=== PATIENT | male | born 1940 | race African-American/Black ===

== ENCOUNTER 2019-11-07 18:36 | Inpatient (IN) ==
[2019-11-07 22:10] LABS: Hematocrit 18.5 VOL% (42.0-52.0)
[2019-11-07 22:13] LABS: Hemoglobin 6.1 GM/DL (14.0-18.0)
[2019-11-07] MEDS ORDERED: SODIUM CHLORIDE 0.9% 1,000 ML IV PRN (22:21)
[2019-11-07] MEDS ORDERED: ONDANSETRON 4 MG/2 ML VIAL IV PRN (23:02)
[2019-11-07] MEDS ORDERED: ACETAMINOPHEN 325 MG TABLET PO PRN (23:02)
[2019-11-07] MEDS ORDERED: DOCUSATE SODIUM 100 MG CAPSULE PO PRN (23:02)
[2019-11-08] MEDS: carvediloL 3.125 MG TABLET PO SCH ×2 (09:55→17:52)
[2019-11-08 09:56] LABS: Basophils % 0.2 % (0.0-0.8); Eosinophils % 0.2 % (0.00-10.9); Hematocrit 21.4 VOL% (42.0-52.0); Hemoglobin 7.3 GM/DL (14.0-18.0); Immature Granulocytes % 0.5 %; Immature Granulocytes Absolute 0.03 #; Lymphocytes # 0.9 10*3/uL (1.4-4.0); Lymphocytes % 15.3 % (21.2-54.2); Mean Corpuscular HGB Conc 34.1 GM/DL (32-36); Mean Platelet Volume 10.5 FL (9.6-12.0); Monocytes % 4.5 % (1.7-12.7); Neutrophils % 79.3 % (38.7-73.9); Platelet Count 158 T/CUMM (130-400); Red Blood Count 2.14 MC/CUMM (3.8-5.5); Red Cell Distribution Width 18.4 % (9.3-17.3); White Blood Count 5.6 T/CUMM (4-12)
[2019-11-08 10:04] LABS: INR 1.3; PT Patient Result 13.5 SECS (9.8-11.9); Partial Thromboplastin Time 27.6 SECS (23.9-33.8)
[2019-11-08 10:20] LABS: Albumin 2.1 G/DL (3.4-5.0); Bilirubin,Total 0.9 MG/DL (0.2-1.0); Calcium 7.7 MG/DL (8.5-10.1); Osmolality,Calculated 289.1 MOS/KG (273-304); Total Protein 4.2 G/DL (6.4-8.3)
[2019-11-08] MEDS: TAMSULOSIN 0.4 MG CAPSULE PO SCH (14:37)
[2019-11-08] MEDS: ATORVASTATIN 10 MG TABLET PO SCH (20:11)
[2019-11-08] MEDS: DUTASTERIDE 0.5 MG CAPSULE PO SCH (20:11)
[2019-11-08 20:24] LABS: Hematocrit 22.6 VOL% (42.0-52.0); Hemoglobin 7.4 GM/DL (14.0-18.0)
[2019-11-08 22:48] LABS: Hematocrit 22.6 VOL% (42.0-52.0); Hemoglobin 7.7 GM/DL (14.0-18.0)
[2019-11-09 05:47] LABS: Basophils % 0.4 % (0.0-0.8); Eosinophils # 0.1 10*3/uL (0.0-0.87); Eosinophils % 1.1 % (0.00-10.9); Immature Granulocytes % 0.5 %; Immature Granulocytes Absolute 0.03 #; Lymphocytes # 1.2 10*3/uL (1.4-4.0); Lymphocytes % 22.1 % (21.2-54.2); Mean Corpuscular HGB Conc 33.5 GM/DL (32-36); Mean Corpuscular Volume 95.7 FL (87-102); Mean Platelet Volume 10.5 FL (9.6-12.0); Monocytes % 6.8 % (1.7-12.7); Neutrophils % 69.1 % (38.7-73.9); Platelet Count 131 T/CUMM (130-400); Red Blood Count 1.87 MC/CUMM (3.8-5.5); Red Cell Distribution Width 20.5 % (9.3-17.3); White Blood Count 5.6 T/CUMM (4-12)
[2019-11-09 05:48] LABS: Hematocrit 17.9 VOL% (42.0-52.0)
[2019-11-09] MEDS ORDERED: SODIUM CHLORIDE 0.9% 1,000 ML IV PRN (05:53)
[2019-11-09 06:07] LABS: Calcium 7.6 MG/DL (8.5-10.1)
[2019-11-09 06:51] LABS: Platelet Estimate Adequate
[2019-11-09 06:52] LABS: Anisocytosis 2+; Giant Platelets Few; Poikilocytosis Slight
[2019-11-09 06:53] LABS: Macrocytosis Slight
[2019-11-09] MEDS ORDERED: MAGNESIUM SULF RIDER 2 GM in PREMIX 1 EACH IV ONE (08:44)
[2019-11-09] MEDS: TAMSULOSIN 0.4 MG CAPSULE PO SCH (09:53)
[2019-11-09] MEDS: carvediloL 3.125 MG TABLET PO SCH ×2 (09:54→17:18)
[2019-11-09] MEDS: lisinopriL 2.5 MG TABLET PO SCH (09:54)
[2019-11-09 16:07] LABS: Hematocrit 24.3 VOL% (42.0-52.0); Hemoglobin 8.2 GM/DL (14.0-18.0)
[2019-11-09] MEDS: DUTASTERIDE 0.5 MG CAPSULE PO SCH (21:25)
[2019-11-09] MEDS: ATORVASTATIN 10 MG TABLET PO SCH (21:25)
[2019-11-09 22:10] LABS: Hematocrit 25.5 VOL% (42.0-52.0); Hemoglobin 8.9 GM/DL (14.0-18.0)
[2019-11-10 06:13] LABS: Basophils % 0.4 % (0.0-0.8); Eosinophils # 0.1 10*3/uL (0.0-0.87); Eosinophils % 1.3 % (0.00-10.9); Hemoglobin 7.9 GM/DL (14.0-18.0); Immature Granulocytes % 0.4 %; Immature Granulocytes Absolute 0.03 #; Lymphocytes # 1.3 10*3/uL (1.4-4.0); Lymphocytes % 18.4 % (21.2-54.2); Mean Corpuscular HGB Conc 34.3 GM/DL (32-36); Mean Platelet Volume 10.8 FL (9.6-12.0); Monocytes % 6.3 % (1.7-12.7); Neutrophils % 73.2 % (38.7-73.9); Platelet Count 138 T/CUMM (130-400); Red Cell Distribution Width 18.6 % (9.3-17.3); White Blood Count 6.8 T/CUMM (4-12)
[2019-11-10 06:47] LABS: Calcium 7.9 MG/DL (8.5-10.1); Osmolality,Calculated 285.1 MOS/KG (273-304)
[2019-11-10] MEDS: lisinopriL 2.5 MG TABLET PO SCH (08:11)
[2019-11-10] MEDS: carvediloL 3.125 MG TABLET PO SCH ×2 (08:11→16:48)
[2019-11-10] MEDS: TAMSULOSIN 0.4 MG CAPSULE PO SCH (08:11)
[2019-11-10] MEDS: POLYETHYLENE GLYCOL POWDER 17 GM PACK PO SCH (08:31)
[2019-11-10] MEDS: DOCUSATE SODIUM 100 MG CAPSULE PO SCH ×2 (08:31→21:37)
[2019-11-10] MEDS: DUTASTERIDE 0.5 MG CAPSULE PO SCH (21:37)
[2019-11-10] MEDS: ATORVASTATIN 10 MG TABLET PO SCH (21:37)
[2019-11-11 06:37] LABS: Basophils % 0.3 % (0.0-0.8); Eosinophils # 0.1 10*3/uL (0.0-0.87); Eosinophils % 1.3 % (0.00-10.9); Hematocrit 21.9 VOL% (42.0-52.0); Hemoglobin 7.2 GM/DL (14.0-18.0); Immature Granulocytes % 0.5 %; Immature Granulocytes Absolute 0.03 #; Lymphocytes # 0.9 10*3/uL (1.4-4.0); Lymphocytes % 15.5 % (21.2-54.2); Mean Corpuscular HGB Conc 32.9 GM/DL (32-36); Mean Corpuscular Volume 96.5 FL (87-102); Mean Platelet Volume 10.6 FL (9.6-12.0); Monocytes % 6.2 % (1.7-12.7); Neutrophils % 76.2 % (38.7-73.9); Platelet Count 168 T/CUMM (130-400); Red Blood Count 2.27 MC/CUMM (3.8-5.5); Red Cell Distribution Width 18.6 % (9.3-17.3)
[2019-11-11] MEDS ORDERED: SODIUM CHLORIDE 0.9% 1,000 ML IV PRN (07:27)
[2019-11-11] MEDS: POLYETHYLENE GLYCOL POWDER 17 GM PACK PO SCH (08:34)
[2019-11-11] MEDS: DOCUSATE SODIUM 100 MG CAPSULE PO SCH ×2 (08:34→20:59)
[2019-11-11] MEDS: TAMSULOSIN 0.4 MG CAPSULE PO SCH (08:34)
[2019-11-11] MEDS: lisinopriL 2.5 MG TABLET PO SCH (08:34)
[2019-11-11] MEDS: carvediloL 3.125 MG TABLET PO SCH ×2 (08:34→16:47)
[2019-11-11] MEDS ORDERED: BISACODYL 10 MG SUPP RECTAL ONE (12:53)
[2019-11-11] MEDS: DUTASTERIDE 0.5 MG CAPSULE PO SCH (20:59)
[2019-11-11] MEDS: ATORVASTATIN 10 MG TABLET PO SCH (20:59)
[2019-11-12 05:56] LABS: Basophils % 0.3 % (0.0-0.8); Eosinophils # 0.2 10*3/uL (0.0-0.87); Eosinophils % 2.1 % (0.00-10.9); Hemoglobin 9.3 GM/DL (14.0-18.0); Immature Granulocytes % 0.4 %; Immature Granulocytes Absolute 0.03 #; Lymphocytes # 1.1 10*3/uL (1.4-4.0); Lymphocytes % 14.2 % (21.2-54.2); Mean Corpuscular HGB Conc 33.2 GM/DL (32-36); Mean Platelet Volume 10.3 FL (9.6-12.0); Monocytes % 5.4 % (1.7-12.7); Neutrophils % 77.6 % (38.7-73.9); Platelet Count 181 T/CUMM (130-400); Red Blood Count 2.98 MC/CUMM (3.8-5.5); Red Cell Distribution Width 18.8 % (9.3-17.3); White Blood Count 7.8 T/CUMM (4-12)
[2019-11-12 07:09] LABS: Calcium 7.8 MG/DL (8.5-10.1)
[2019-11-12] MEDS: carvediloL 3.125 MG TABLET PO SCH ×2 (08:24→17:04)
[2019-11-12] MEDS: lisinopriL 2.5 MG TABLET PO SCH (08:24)
[2019-11-12] MEDS: POLYETHYLENE GLYCOL POWDER 17 GM PACK PO SCH (08:25)
[2019-11-12] MEDS: TAMSULOSIN 0.4 MG CAPSULE PO SCH (08:25)
[2019-11-12] MEDS: DOCUSATE SODIUM 100 MG CAPSULE PO SCH ×2 (08:25→20:23)
[2019-11-12] MEDS: ATORVASTATIN 10 MG TABLET PO SCH (20:23)
[2019-11-12] MEDS: DUTASTERIDE 0.5 MG CAPSULE PO SCH (20:23)
[2019-11-13 04:53] LABS: Basophils % 0.4 % (0.0-0.8); Eosinophils # 0.2 10*3/uL (0.0-0.87); Eosinophils % 4.2 % (0.00-10.9); Hematocrit 29.2 VOL% (42.0-52.0); Hemoglobin 9.8 GM/DL (14.0-18.0); Immature Granulocytes % 0.4 %; Immature Granulocytes Absolute 0.02 #; Lymphocytes # 0.9 10*3/uL (1.4-4.0); Lymphocytes % 17.1 % (21.2-54.2); Mean Corpuscular HGB Conc 33.6 GM/DL (32-36); Mean Corpuscular Volume 93.9 FL (87-102); Mean Platelet Volume 10.2 FL (9.6-12.0); Monocytes % 7.3 % (1.7-12.7); Neutrophils % 70.6 % (38.7-73.9); Platelet Count 204 T/CUMM (130-400); Red Blood Count 3.11 MC/CUMM (3.8-5.5); Red Cell Distribution Width 18.5 % (9.3-17.3); White Blood Count 5.5 T/CUMM (4-12)
[2019-11-13] MEDS: carvediloL 3.125 MG TABLET PO SCH ×2 (08:57→16:01)
[2019-11-13] MEDS: DOCUSATE SODIUM 100 MG CAPSULE PO SCH ×2 (08:57→22:04)
[2019-11-13] MEDS: POLYETHYLENE GLYCOL POWDER 17 GM PACK PO SCH (08:57)
[2019-11-13] MEDS: TAMSULOSIN 0.4 MG CAPSULE PO SCH (08:57)
[2019-11-13] MEDS: lisinopriL 2.5 MG TABLET PO SCH ×2 (08:57→22:04)
[2019-11-13] MEDS: DUTASTERIDE 0.5 MG CAPSULE PO SCH (22:04)
[2019-11-13] MEDS: ATORVASTATIN 10 MG TABLET PO SCH (22:04)
[2019-11-14 06:31] LABS: Basophils % 0.4 % (0.0-0.8); Eosinophils # 0.2 10*3/uL (0.0-0.87); Eosinophils % 3.4 % (0.00-10.9); Hematocrit 29.3 VOL% (42.0-52.0); Hemoglobin 9.6 GM/DL (14.0-18.0); Immature Granulocytes % 0.2 %; Immature Granulocytes Absolute 0.01 #; Lymphocytes % 18.8 % (21.2-54.2); Mean Corpuscular HGB Conc 32.8 GM/DL (32-36); Mean Corpuscular Volume 95.8 FL (87-102); Monocytes % 7.6 % (1.7-12.7); Neutrophils % 69.6 % (38.7-73.9); Platelet Count 215 T/CUMM (130-400); Red Blood Count 3.06 MC/CUMM (3.8-5.5); White Blood Count 5.3 T/CUMM (4-12)
[2019-11-14 06:53] LABS: Calcium 7.8 MG/DL (8.5-10.1); Osmolality,Calculated 287.8 MOS/KG (273-304)
[2019-11-14] MEDS ORDERED: LIDOCAINE 2% TOP JELLY 20 ML VIAL INTRAURETH ONE (09:07)
[2019-11-14] MEDS: lisinopriL 2.5 MG TABLET PO SCH ×2 (10:18→21:33)
[2019-11-14] MEDS: DOCUSATE SODIUM 100 MG CAPSULE PO SCH ×2 (10:18→21:33)
[2019-11-14] MEDS: TAMSULOSIN 0.4 MG CAPSULE PO SCH (10:18)
[2019-11-14] MEDS: carvediloL 3.125 MG TABLET PO SCH ×2 (10:18→16:06)
[2019-11-14] MEDS: POLYETHYLENE GLYCOL POWDER 17 GM PACK PO SCH (10:19)
[2019-11-14] MEDS: ATORVASTATIN 10 MG TABLET PO SCH (21:32)
[2019-11-14] MEDS: DUTASTERIDE 0.5 MG CAPSULE PO SCH (21:33)
[2019-11-15 06:59] LABS: Basophils % 0.7 % (0.0-0.8); Eosinophils # 0.1 10*3/uL (0.0-0.87); Eosinophils % 2.5 % (0.00-10.9); Hematocrit 29.4 VOL% (42.0-52.0); Hemoglobin 9.6 GM/DL (14.0-18.0); Immature Granulocytes % 0.2 %; Immature Granulocytes Absolute 0.01 #; Lymphocytes # 0.8 10*3/uL (1.4-4.0); Lymphocytes % 17.2 % (21.2-54.2); Mean Corpuscular HGB Conc 32.7 GM/DL (32-36); Mean Corpuscular Volume 96.4 FL (87-102); Mean Platelet Volume 10.2 FL (9.6-12.0); Monocytes % 7.1 % (1.7-12.7); Neutrophils % 72.3 % (38.7-73.9); Platelet Count 240 T/CUMM (130-400); Red Blood Count 3.05 MC/CUMM (3.8-5.5); Red Cell Distribution Width 17.7 % (9.3-17.3); White Blood Count 4.5 T/CUMM (4-12)
[2019-11-15] MEDS: carvediloL 3.125 MG TABLET PO SCH ×2 (10:30→16:25)
[2019-11-15] MEDS: TAMSULOSIN 0.4 MG CAPSULE PO SCH (10:30)
[2019-11-15] MEDS: POLYETHYLENE GLYCOL POWDER 17 GM PACK PO SCH (10:30)
[2019-11-15] MEDS: lisinopriL 2.5 MG TABLET PO SCH (10:30)
[2019-11-15] MEDS: DOCUSATE SODIUM 100 MG CAPSULE PO SCH (10:30)
[2019-11-15 12:16] VITALS: BP 136/60
== END 2019-11-15 16:43 | disposition home health service (06) | DRG 813 ==
LOC: N.3E 20:51 → SUATTDRO 20:51
PROVIDERS: ADMIT Internal Medicine; ATTEND Internal Medicine

== ENCOUNTER 2020-06-03 11:44 | Inpatient (IN) ==
[2020-06-03] MEDS ORDERED: ONDANSETRON 4 MG/2 ML VIAL IV PRN (13:44)
[2020-06-03] MEDS ORDERED: ACETAMINOPHEN 325 MG TABLET PO PRN (13:44)
[2020-06-03 14:21] LABS: Basophils % 0.8 % (0.0-0.8); Eosinophils # 0.1 10*3/uL (0.0-0.87); Eosinophils % 2.1 % (0.00-10.9); Hematocrit 23.9 VOL% (42.0-52.0); Immature Granulocytes % 0.3 %; Immature Granulocytes Absolute 0.01 #; Lymphocytes # 1.2 10*3/uL (1.4-4.0); Mean Corpuscular HGB Conc 29.3 GM/DL (32-36); Mean Corpuscular Volume 97.6 FL (87-102); Mean Platelet Volume 11.5 FL (9.6-12.0); Neutrophils % 56.8 % (38.7-73.9); Platelet Count 186 T/CUMM (130-400); Red Blood Count 2.45 MC/CUMM (3.8-5.5); Red Cell Distribution Width 16.1 % (9.3-17.3); White Blood Count 3.9 T/CUMM (4-12)
[2020-06-03] MEDS ORDERED: SODIUM CHLORIDE 0.9% 1,000 ML IV PRN (14:21)
[2020-06-03] MEDS: carvediloL 3.125 MG TABLET PO SCH (16:44)
[2020-06-03] MEDS ORDERED: FUROSEMIDE 20 MG/2 ML VIAL IV ONE ×2 (17:22→20:00)
[2020-06-03] MEDS: lisinopriL 2.5 MG TABLET PO SCH (20:37)
[2020-06-03] MEDS: ATORVASTATIN 10 MG TABLET PO SCH (20:37)
[2020-06-03] MEDS: levETIRAcetam 500 MG TABLET PO SCH (20:37)
[2020-06-03] MEDS ORDERED: DOCUSATE SODIUM 100 MG CAPSULE PO SCH (21:00)
[2020-06-04 05:45] LABS: Basophils % 0.6 % (0.0-0.8); Eosinophils # 0.1 10*3/uL (0.0-0.87); Eosinophils % 1.6 % (0.00-10.9); Hematocrit 28.5 VOL% (42.0-52.0); Hemoglobin 8.7 GM/DL (14.0-18.0); Immature Granulocytes % 0.2 %; Immature Granulocytes Absolute 0.01 #; Mean Corpuscular HGB Conc 30.5 GM/DL (32-36); Mean Corpuscular Volume 95.6 FL (87-102); Mean Platelet Volume 11.7 FL (9.6-12.0); Neutrophils % 70.6 % (38.7-73.9); Platelet Count 163 T/CUMM (130-400); Red Blood Count 2.98 MC/CUMM (3.8-5.5); Red Cell Distribution Width 15.8 % (9.3-17.3); White Blood Count 4.9 T/CUMM (4-12)
[2020-06-04 06:14] LABS: Bilirubin,Total 0.8 MG/DL (0.2-1.0); Calcium 8.4 MG/DL (8.5-10.1); Osmolality,Calculated 282.4 MOS/KG (273-304); Potassium 4.2 MMOL/L (3.5-5.1); Total Protein 6.2 G/DL (6.4-8.3)
[2020-06-04] MEDS: DUTASTERIDE 0.5 MG CAPSULE PO SCH (09:14)
[2020-06-04] MEDS: PANTOPRAZOLE 40 MG TABLET PO SCH (09:14)
[2020-06-04] MEDS: levETIRAcetam 500 MG TABLET PO SCH ×2 (09:15→20:51)
[2020-06-04] MEDS: carvediloL 3.125 MG TABLET PO SCH ×2 (09:15→16:22)
[2020-06-04] MEDS: lisinopriL 2.5 MG TABLET PO SCH ×2 (09:15→20:51)
[2020-06-04] MEDS: TAMSULOSIN 0.4 MG CAPSULE PO SCH (09:15)
[2020-06-04] MEDS: DOCUSATE SODIUM 100 MG CAPSULE PO SCH (09:15)
[2020-06-04] MEDS: ATORVASTATIN 10 MG TABLET PO SCH (20:51)
[2020-06-05] MEDS: carvediloL 3.125 MG TABLET PO SCH ×2 (08:46→17:09)
[2020-06-05] MEDS: TAMSULOSIN 0.4 MG CAPSULE PO SCH (08:46)
[2020-06-05] MEDS: lisinopriL 2.5 MG TABLET PO SCH ×2 (08:46→21:42)
[2020-06-05] MEDS: PANTOPRAZOLE 40 MG TABLET PO SCH (08:46)
[2020-06-05] MEDS: DUTASTERIDE 0.5 MG CAPSULE PO SCH (08:46)
[2020-06-05] MEDS: DOCUSATE SODIUM 100 MG CAPSULE PO SCH (08:46)
[2020-06-05] MEDS: levETIRAcetam 500 MG TABLET PO SCH ×2 (08:46→21:42)
[2020-06-05] MEDS: ATORVASTATIN 10 MG TABLET PO SCH (21:42)
[2020-06-06 06:40] LABS: Basophils % 0.3 % (0.0-0.8); Eosinophils # 0.1 10*3/uL (0.0-0.87); Eosinophils % 1.9 % (0.00-10.9); Hemoglobin 8.8 GM/DL (14.0-18.0); Immature Granulocytes % 0.3 %; Immature Granulocytes Absolute 0.01 #; Lymphocytes % 26.6 % (21.2-54.2); Mean Corpuscular HGB Conc 31.4 GM/DL (32-36); Mean Platelet Volume 12.2 FL (9.6-12.0); Monocytes % 7.7 % (1.7-12.7); Neutrophils % 63.2 % (38.7-73.9); Platelet Count 163 T/CUMM (130-400); Red Blood Count 2.98 MC/CUMM (3.8-5.5); Red Cell Distribution Width 15.8 % (9.3-17.3); White Blood Count 3.7 T/CUMM (4-12)
[2020-06-06 06:54] LABS: Calcium 8.1 MG/DL (8.5-10.1); Osmolality,Calculated 289.7 MOS/KG (273-304); Potassium 4.1 MMOL/L (3.5-5.1)
[2020-06-06 06:55] LABS: Calcium 8.2 MG/DL (8.5-10.1); Osmolality,Calculated 289.7 MOS/KG (273-304); Potassium 4.1 MMOL/L (3.5-5.1)
[2020-06-06] MEDS: lisinopriL 2.5 MG TABLET PO SCH ×2 (08:33→20:52)
[2020-06-06] MEDS: DUTASTERIDE 0.5 MG CAPSULE PO SCH (08:33)
[2020-06-06] MEDS: DOCUSATE SODIUM 100 MG CAPSULE PO SCH (08:33)
[2020-06-06] MEDS: levETIRAcetam 500 MG TABLET PO SCH ×2 (08:33→20:52)
[2020-06-06] MEDS: TAMSULOSIN 0.4 MG CAPSULE PO SCH (08:33)
[2020-06-06] MEDS: PANTOPRAZOLE 40 MG TABLET PO SCH (08:33)
[2020-06-06] MEDS: carvediloL 3.125 MG TABLET PO SCH ×2 (08:33→17:21)
[2020-06-06] MEDS: ATORVASTATIN 10 MG TABLET PO SCH (20:52)
[2020-06-07 05:29] LABS: Basophils % 0.5 % (0.0-0.8); Eosinophils # 0.1 10*3/uL (0.0-0.87); Eosinophils % 2.6 % (0.00-10.9); Hematocrit 28.7 VOL% (42.0-52.0); Hemoglobin 8.9 GM/DL (14.0-18.0); Immature Granulocytes % 0.2 %; Immature Granulocytes Absolute 0.01 #; Lymphocytes % 24.4 % (21.2-54.2); Mean Corpuscular Volume 94.4 FL (87-102); Mean Platelet Volume 11.1 FL (9.6-12.0); Monocytes % 7.5 % (1.7-12.7); Neutrophils % 64.8 % (38.7-73.9); Platelet Count 161 T/CUMM (130-400); Red Blood Count 3.04 MC/CUMM (3.8-5.5); Red Cell Distribution Width 15.9 % (9.3-17.3); White Blood Count 4.3 T/CUMM (4-12)
[2020-06-07 05:43] LABS: INR 1.2; PT Patient Result 12.7 SECS (9.8-11.9)
[2020-06-07 06:10] LABS: Calcium 8.3 MG/DL (8.5-10.1); Osmolality,Calculated 289.7 MOS/KG (273-304); Potassium 4.1 MMOL/L (3.5-5.1)
[2020-06-07] MEDS: lisinopriL 2.5 MG TABLET PO SCH (11:08)
[2020-06-07] MEDS: TAMSULOSIN 0.4 MG CAPSULE PO SCH (11:09)
[2020-06-07] MEDS: DUTASTERIDE 0.5 MG CAPSULE PO SCH (11:09)
[2020-06-07] MEDS: levETIRAcetam 500 MG TABLET PO SCH (11:09)
[2020-06-07] MEDS: PANTOPRAZOLE 40 MG TABLET PO SCH (11:09)
[2020-06-07] MEDS: DOCUSATE SODIUM 100 MG CAPSULE PO SCH (11:09)
[2020-06-07] MEDS: carvediloL 3.125 MG TABLET PO SCH (11:09)
[2020-06-07 12:38] VITALS: BP 163/64
== END 2020-06-07 14:20 | disposition home health service (06) | DRG 694 ==
LOC: N.TELEN
PROVIDERS: ADMIT Family Medicine; ATTEND Family Medicine

== ENCOUNTER 2020-08-20 21:25 | Observation (INO) ==
[2020-08-20] MEDS ORDERED: LORazepam 2 MG/1 ML VIAL IV STA (21:56)
[2020-08-20 22:05] LABS: Basophils # 0.1 10*3/uL (0.0-0.2); Basophils % 0.7 % (0.0-0.8); Eosinophils # 0.2 10*3/uL (0.0-0.87); Eosinophils % 2.3 % (0.00-10.9); Hematocrit 34.5 VOL% (42.0-52.0); Hemoglobin 11.1 GM/DL (14.0-18.0); Immature Granulocytes % 0.1 %; Immature Granulocytes Absolute 0.01 #; Lymphocytes # 1.2 10*3/uL (1.4-4.0); Lymphocytes % 16.3 % (21.2-54.2); Mean Corpuscular HGB Conc 32.2 GM/DL (32-36); Mean Corpuscular Volume 98.6 FL (87-102); Mean Platelet Volume 11.5 FL (9.6-12.0); Monocytes % 4.9 % (1.7-12.7); Neutrophils % 75.7 % (38.7-73.9); Platelet Count 216 T/CUMM (130-400); Red Cell Distribution Width 20.1 % (9.3-17.3); White Blood Count 7.4 T/CUMM (4-12)
[2020-08-20 22:24] LABS: Albumin 3.3 G/DL (3.4-5.0); Bilirubin,Total 0.8 MG/DL (0.2-1.0); Calcium 9.1 MG/DL (8.5-10.1); Osmolality,Calculated 290.8 MOS/KG (273-304); Potassium 4.3 MMOL/L (3.5-5.1); Total Protein 7.1 G/DL (6.4-8.2)
[2020-08-20] MEDS ORDERED: FUROSEMIDE 40 MG/4 ML VIAL IV STA (22:37)
[2020-08-20] MEDS ORDERED: ONDANSETRON 4 MG/2 ML VIAL IV PRN (23:42)
[2020-08-21 06:03] LABS: Basophils % 0.4 % (0.0-0.8); Eosinophils % 0.2 % (0.00-10.9); Hematocrit 34.9 VOL% (42.0-52.0); Hemoglobin 11.4 GM/DL (14.0-18.0); Immature Granulocytes % 0.4 %; Immature Granulocytes Absolute 0.02 #; Lymphocytes # 0.9 10*3/uL (1.4-4.0); Lymphocytes % 15.4 % (21.2-54.2); Mean Corpuscular HGB Conc 32.7 GM/DL (32-36); Mean Corpuscular Volume 98.9 FL (87-102); Mean Platelet Volume 11.8 FL (9.6-12.0); Monocytes % 8.9 % (1.7-12.7); Neutrophils % 74.7 % (38.7-73.9); Platelet Count 202 T/CUMM (130-400); Red Blood Count 3.53 MC/CUMM (3.8-5.5); Red Cell Distribution Width 19.9 % (9.3-17.3); White Blood Count 5.5 T/CUMM (4-12)
[2020-08-21 06:26] LABS: Albumin 3.1 G/DL (3.4-5.0); Bilirubin,Total 0.8 MG/DL (0.2-1.0); Calcium 8.8 MG/DL (8.5-10.1); Potassium 3.7 MMOL/L (3.5-5.1); Total Protein 6.7 G/DL (6.4-8.2)
[2020-08-21] MEDS: PANTOPRAZOLE 40 MG VIAL IV SCH (08:18)
[2020-08-21] MEDS: ENOXAPARIN 100 MG/ML SYRINGE SUBCUT SCH ×2 (08:19→20:20)
[2020-08-21] MEDS ORDERED: MAGNESIUM HYDROXIDE SUSP 30 ML UDCUP PO ONE (11:15)
[2020-08-21 11:54] LABS: Troponin I 0.102 NG/ML (0.00-0.045)
[2020-08-21] MEDS ORDERED: LORazepam 2 MG/1 ML VIAL IV PRN (13:05)
[2020-08-21] MEDS ORDERED: LORazepam 2 MG/1 ML VIAL ONE (13:07)
[2020-08-21 14:59] LABS: Troponin I 0.158 NG/ML (0.00-0.045)
[2020-08-21] MEDS: FUROSEMIDE 40 MG/4 ML VIAL IV SCH (15:45)
[2020-08-21 18:11] LABS: Troponin I 0.142 NG/ML (0.00-0.045)
[2020-08-21] MEDS: HALOPERIDOL 5 MG/ML AMP IM PRN (20:17)
[2020-08-21] MEDS: carvediloL 3.125 MG TABLET PO SCH (20:19)
[2020-08-21] MEDS: ATORVASTATIN 10 MG TABLET PO SCH (20:19)
[2020-08-21] MEDS: lisinopriL 2.5 MG TABLET PO SCH (23:46)
[2020-08-22] MEDS: HALOPERIDOL 5 MG/ML AMP IM PRN (02:55)
[2020-08-22 05:55] LABS: Basophils % 0.5 % (0.0-0.8); Eosinophils # 0.1 10*3/uL (0.0-0.87); Eosinophils % 1.1 % (0.00-10.9); Hematocrit 39.2 VOL% (42.0-52.0); Hemoglobin 12.3 GM/DL (14.0-18.0); Immature Granulocytes % 0.5 %; Immature Granulocytes Absolute 0.03 #; Lymphocytes # 1.2 10*3/uL (1.4-4.0); Lymphocytes % 19.1 % (21.2-54.2); Mean Corpuscular HGB Conc 31.4 GM/DL (32-36); Mean Corpuscular Volume 101.6 FL (87-102); Neutrophils % 70.8 % (38.7-73.9); Platelet Count 229 T/CUMM (130-400); Red Blood Count 3.86 MC/CUMM (3.8-5.5); Red Cell Distribution Width 19.9 % (9.3-17.3); White Blood Count 6.2 T/CUMM (4-12)
[2020-08-22 06:05] LABS: Calcium 9.3 MG/DL (8.5-10.1); Potassium 3.7 MMOL/L (3.5-5.1)
[2020-08-22] MEDS: ENOXAPARIN 100 MG/ML SYRINGE SUBCUT SCH ×2 (09:34→20:49)
[2020-08-22] MEDS: DUTASTERIDE 0.5 MG CAPSULE PO SCH (09:34)
[2020-08-22] MEDS: TAMSULOSIN 0.4 MG CAPSULE PO SCH (09:34)
[2020-08-22] MEDS: carvediloL 3.125 MG TABLET PO SCH ×2 (09:34→20:49)
[2020-08-22] MEDS: ASPIRIN EC 81 MG TABLET PO SCH (09:34)
[2020-08-22] MEDS: PANTOPRAZOLE 40 MG VIAL IV SCH (09:35)
[2020-08-22] MEDS: FUROSEMIDE 40 MG/4 ML VIAL IV SCH ×2 (09:35→16:36)
[2020-08-22] MEDS: lisinopriL 2.5 MG TABLET PO SCH ×2 (09:36→20:49)
[2020-08-22 11:58] LABS: Bilirubin,Urine Negative (Negative); Blood, Urine Large mg/dL (Negative); Glucose,Urine (UA) Negative (Negative); Ketones,Urine Negative (Negative); Mucus,Urine Occasional /LPF (Occasional); Nitrite,Urine Negative (Negative); Protein,Urine 30 MG/DL; RBC,Urine 143 /HPF (0-4); Squamous Epithelial Cell,Urine Occasional /HPF (0-10); Urine Appearance CLOUDY (Clear); Urine Color Yellow (Yellow); Urine Specific Gravity 1.008 (1.001-1.035); Urine Urobilinogen < 2.0 EU/DL (0.2-1.0); WBC,Urine 284 /HPF (0-6)
[2020-08-22] MEDS: ATORVASTATIN 10 MG TABLET PO SCH (20:44)
[2020-08-23] MEDS: HALOPERIDOL 5 MG/ML AMP IM PRN (01:28)
[2020-08-23 06:14] LABS: Basophils % 0.4 % (0.0-0.8); Eosinophils # 0.1 10*3/uL (0.0-0.87); Eosinophils % 1.4 % (0.00-10.9); Hematocrit 34.6 VOL% (42.0-52.0); Hemoglobin 11.4 GM/DL (14.0-18.0); Immature Granulocytes % 0.2 %; Immature Granulocytes Absolute 0.01 #; Mean Corpuscular HGB Conc 32.9 GM/DL (32-36); Mean Corpuscular Volume 96.4 FL (87-102); Mean Platelet Volume 10.6 FL (9.6-12.0); Monocytes % 9.5 % (1.7-12.7); Neutrophils % 68.5 % (38.7-73.9); Platelet Count 200 T/CUMM (130-400); Red Blood Count 3.59 MC/CUMM (3.8-5.5); Red Cell Distribution Width 19.9 % (9.3-17.3); White Blood Count 4.9 T/CUMM (4-12)
[2020-08-23 06:30] LABS: Calcium 9.1 MG/DL (8.5-10.1); Potassium 3.1 MMOL/L (3.5-5.1)
[2020-08-23] MEDS ORDERED: POTASSIUM CHLORIDE 20 MEQ TABLET PO ONE (08:08)
[2020-08-23] MEDS ORDERED: AMIODARONE 200 MG TABLET PO SCH (09:00)
[2020-08-23] MEDS ORDERED: FUROSEMIDE 40 MG TABLET PO SCH (09:00)
[2020-08-23] MEDS: FUROSEMIDE 40 MG/4 ML VIAL IV SCH (09:29)
[2020-08-23] MEDS: TAMSULOSIN 0.4 MG CAPSULE PO SCH (09:45)
[2020-08-23] MEDS: lisinopriL 2.5 MG TABLET PO SCH (09:45)
[2020-08-23] MEDS: DUTASTERIDE 0.5 MG CAPSULE PO SCH (09:45)
[2020-08-23] MEDS: ASPIRIN EC 81 MG TABLET PO SCH (09:45)
[2020-08-23] MEDS: PANTOPRAZOLE 40 MG VIAL IV SCH (09:45)
[2020-08-23] MEDS: carvediloL 3.125 MG TABLET PO SCH (09:45)
[2020-08-23] MEDS ORDERED: cefTRIAXone 1,000 MG VIAL IM ONE (15:08)
[2020-08-23 15:22] VITALS: BP 95/51
== END 2020-08-23 17:55 | disposition home or self-care (01) ==
LOC: EDBD → EDUNIT# → N.ED 21:25 → N.EDINP 21:25 → N.TELEN 08-21 00:27
PROVIDERS: ADMIT Family Medicine; ATTEND Family Medicine

== ENCOUNTER 2021-01-20 11:16 | Inpatient (IN) ==
[2021-01-20 12:09] LABS: Basophils % 0.1 % (0.0-0.8); Eosinophils % 0.1 % (0.00-10.9); Hemoglobin 11.4 GM/DL (14.0-18.0); Immature Granulocytes % 0.4 %; Immature Granulocytes Absolute 0.03 #; Lymphocytes # 0.6 10*3/uL (1.4-4.0); Lymphocytes % 8.1 % (21.2-54.2); Mean Corpuscular HGB Conc 33.5 GM/DL (32-36); Mean Corpuscular Volume 109.3 FL (87-102); Mean Platelet Volume 11.2 FL (9.6-12.0); Monocytes % 6.6 % (1.7-12.7); Neutrophils % 84.7 % (38.7-73.9); Platelet Count 158 T/CUMM (130-400); Red Blood Count 3.11 MC/CUMM (3.8-5.5); Red Cell Distribution Width 15.2 % (9.3-17.3)
[2021-01-20 12:20] LABS: Bacteria,Urine Occasional /HPF (Few); Bilirubin,Urine Negative (Negative); Blood, Urine Large mg/dL (Negative); Glucose,Urine (UA) Negative (Negative); Hyaline Casts,Urine 14 /LPF (0-3); Ketones,Urine Negative (Negative); Mucus,Urine Occasional /LPF (Occasional); Nitrite,Urine Negative (Negative); Protein,Urine 100 MG/DL; RBC,Urine 538 /HPF (0-4); Squamous Epithelial Cell,Urine Occasional /HPF (0-10); Urine Appearance CLOUDY (Clear); Urine Color Red (Yellow); Urine Specific Gravity 1.014 (1.001-1.035); Urine Urobilinogen < 2.0 EU/DL (0.2-1.0)
[2021-01-20] MEDS ORDERED: cefTRIAXone 1,000 MG in SODIUM CHLORIDE 0.9% 100 ML IV STA (12:24)
[2021-01-20 12:35] LABS: Albumin 2.8 G/DL (3.4-5.0); Bilirubin,Total 0.8 MG/DL (0.20-1.00); Calcium 8.5 MG/DL (8.5-10.1); Osmolality,Calculated 294.7 MOS/KG (273-304); Potassium 3.5 MMOL/L (3.5-5.1); Total Protein 6.7 G/DL (6.4-8.2)
[2021-01-20 12:37] LABS: Lymphocytes 9 % (20-55); Segmented Neutrophils 88 % (50-85); Total Cells Counted 100
[2021-01-20 12:38] LABS: Hypochromasia Slight; Microcytosis Slight; Ovalocytes Slight; Platelet Estimate Adequate
[2021-01-20] MEDS ORDERED: LACTATED RINGERS 250 ML IV ONE (13:25)
[2021-01-20] MEDS ORDERED: ONDANSETRON 4 MG/2 ML VIAL IV PRN (14:40)
[2021-01-20] MEDS ORDERED: ACETAMINOPHEN 325 MG TABLET PO PRN (14:40)
[2021-01-20] MEDS ORDERED: propofoL 200 MG/20 ML VIAL IV ONE (15:17)
[2021-01-20] MEDS ORDERED: MORPHINE 2 MG/1 ML SYRINGE IV PRN ×2 (16:00)
[2021-01-20] MEDS: ALBUTEROL/IPRATROPIUM 3 ML NEB RESP TX SCH ×2 (16:10→19:29)
[2021-01-20] MEDS ORDERED: LIDOCAINE 2% TOP JELLY 20 ML VIAL INTRAURETH ONE ×2 (18:35→18:37)
[2021-01-20 19:02] LABS: INR 1.2; PT Patient Result 13.5 SECS (10.5-12.0)
[2021-01-20] MEDS: DOCUSATE SODIUM 100 MG CAPSULE PO SCH (21:11)
[2021-01-21] MEDS: ALBUTEROL/IPRATROPIUM 3 ML NEB RESP TX SCH ×6 (00:09→19:40)
[2021-01-21] MEDS ORDERED: FUROSEMIDE 40 MG TABLET PO SCH (09:00)
[2021-01-21] MEDS: DUTASTERIDE 0.5 MG CAPSULE PO SCH (11:07)
[2021-01-21] MEDS: DOCUSATE SODIUM 100 MG CAPSULE PO SCH ×2 (11:07→20:42)
[2021-01-21] MEDS: levETIRAcetam 500 MG TABLET PO SCH ×3 (11:07→20:41)
[2021-01-21] MEDS: TAMSULOSIN 0.4 MG CAPSULE PO SCH (11:07)
[2021-01-21] MEDS: cefTRIAXone 1,000 MG in SODIUM CHLORIDE 0.9% 100 ML IV SCH (11:08)
[2021-01-21] MEDS: ASPIRIN EC 81 MG TABLET PO SCH (11:08)
[2021-01-21] MEDS: FUROSEMIDE 40 MG TABLET PO SCH (11:08)
[2021-01-21] MEDS: carvediloL 3.125 MG TABLET PO SCH ×2 (11:08→20:41)
[2021-01-21] MEDS: PANTOPRAZOLE 40 MG TABLET PO SCH (11:08)
[2021-01-21] MEDS: ATORVASTATIN 10 MG TABLET PO SCH (20:42)
[2021-01-22] MEDS: ALBUTEROL/IPRATROPIUM 3 ML NEB RESP TX SCH ×6 (00:13→20:15)
[2021-01-22 06:02] LABS: Basophils % 0.1 % (0.0-0.8); Eosinophils # 0.1 10*3/uL (0.0-0.87); Eosinophils % 1.4 % (0.00-10.9); Hemoglobin 10.2 GM/DL (14.0-18.0); Immature Granulocytes % 0.6 %; Immature Granulocytes Absolute 0.04 #; Lymphocytes # 0.7 10*3/uL (1.4-4.0); Lymphocytes % 9.2 % (21.2-54.2); Mean Corpuscular Volume 109.9 FL (87-102); Mean Platelet Volume 11.2 FL (9.6-12.0); Monocytes % 6.2 % (1.7-12.7); Neutrophils % 82.5 % (38.7-73.9); Platelet Count 164 T/CUMM (130-400); Red Blood Count 2.73 MC/CUMM (3.8-5.5); Red Cell Distribution Width 15.1 % (9.3-17.3); White Blood Count 7.3 T/CUMM (4-12)
[2021-01-22 06:06] LABS: Albumin 2.5 G/DL (3.4-5.0); Bilirubin,Total 0.7 MG/DL (0.20-1.00); Calcium 8.4 MG/DL (8.5-10.1); Osmolality,Calculated 287.1 MOS/KG (273-304); Potassium 3.8 MMOL/L (3.5-5.1); Total Protein 6.2 G/DL (6.4-8.2)
[2021-01-22 06:31] LABS: Hypochromasia 1+; Lymphocytes 10 % (20-55); Microcytosis 1+; Ovalocytes Slight; Platelet Estimate Adequate; Segmented Neutrophils 83 % (50-85); Total Cells Counted 100
[2021-01-22] MEDS: DOCUSATE SODIUM 100 MG CAPSULE PO SCH ×2 (09:37→20:14)
[2021-01-22] MEDS: levETIRAcetam 500 MG TABLET PO SCH ×3 (09:37→20:14)
[2021-01-22] MEDS: PANTOPRAZOLE 40 MG TABLET PO SCH (09:38)
[2021-01-22] MEDS: TAMSULOSIN 0.4 MG CAPSULE PO SCH (09:38)
[2021-01-22] MEDS: carvediloL 3.125 MG TABLET PO SCH ×2 (09:38→20:14)
[2021-01-22] MEDS: cefTRIAXone 1,000 MG in SODIUM CHLORIDE 0.9% 100 ML IV SCH (09:38)
[2021-01-22] MEDS: DUTASTERIDE 0.5 MG CAPSULE PO SCH (09:38)
[2021-01-22] MEDS: ASPIRIN EC 81 MG TABLET PO SCH (09:38)
[2021-01-22] MEDS: FUROSEMIDE 40 MG TABLET PO SCH (09:39)
[2021-01-22] MEDS: ATORVASTATIN 10 MG TABLET PO SCH (20:14)
[2021-01-23] MEDS: ALBUTEROL/IPRATROPIUM 3 ML NEB RESP TX SCH ×6 (01:22→20:30)
[2021-01-23 04:45] LABS: Eosinophils # 0.1 10*3/uL (0.0-0.87); Hematocrit 28.8 VOL% (42.0-52.0); Hemoglobin 9.7 GM/DL (14.0-18.0); Immature Granulocytes % 0.4 %; Immature Granulocytes Absolute 0.02 #; Lymphocytes # 0.6 10*3/uL (1.4-4.0); Lymphocytes % 11.1 % (21.2-54.2); Mean Corpuscular HGB Conc 33.7 GM/DL (32-36); Mean Corpuscular Volume 109.9 FL (87-102); Mean Platelet Volume 11.1 FL (9.6-12.0); Monocytes % 5.8 % (1.7-12.7); Neutrophils % 80.7 % (38.7-73.9); Platelet Count 160 T/CUMM (130-400); Red Blood Count 2.62 MC/CUMM (3.8-5.5); Red Cell Distribution Width 15.1 % (9.3-17.3); White Blood Count 5.5 T/CUMM (4-12)
[2021-01-23 05:09] LABS: Albumin 2.4 G/DL (3.4-5.0); Bilirubin,Total 0.6 MG/DL (0.20-1.00); Calcium 8.3 MG/DL (8.5-10.1); Osmolality,Calculated 286.1 MOS/KG (273-304); Potassium 3.6 MMOL/L (3.5-5.1)
[2021-01-23 05:20] LABS: Burr Cells Slight; Eosinophils 1 % (0-10); Hypochromasia 1+; Lymphocytes 12 % (20-55); Microcytosis 1+; Ovalocytes Slight; Platelet Estimate Adequate; Segmented Neutrophils 80 % (50-85); Total Cells Counted 100
[2021-01-23] MEDS: TAMSULOSIN 0.4 MG CAPSULE PO SCH (09:42)
[2021-01-23] MEDS: DUTASTERIDE 0.5 MG CAPSULE PO SCH (09:43)
[2021-01-23] MEDS: cefTRIAXone 1,000 MG in SODIUM CHLORIDE 0.9% 100 ML IV SCH (09:43)
[2021-01-23] MEDS: PANTOPRAZOLE 40 MG TABLET PO SCH (09:43)
[2021-01-23] MEDS: levETIRAcetam 500 MG TABLET PO SCH ×3 (09:43→21:09)
[2021-01-23] MEDS: ASPIRIN EC 81 MG TABLET PO SCH (09:43)
[2021-01-23] MEDS: DOCUSATE SODIUM 100 MG CAPSULE PO SCH ×2 (09:43→21:09)
[2021-01-23] MEDS: carvediloL 3.125 MG TABLET PO SCH ×2 (09:43→21:09)
[2021-01-23] MEDS: FUROSEMIDE 40 MG TABLET PO SCH (10:10)
[2021-01-23] MEDS: ATORVASTATIN 10 MG TABLET PO SCH (21:09)
[2021-01-24] MEDS: ALBUTEROL/IPRATROPIUM 3 ML NEB RESP TX SCH ×7 (01:00→23:45)
[2021-01-24 05:50] LABS: Basophils % 0.2 % (0.0-0.8); Eosinophils % 0.5 % (0.00-10.9); Hematocrit 29.4 VOL% (42.0-52.0); Hemoglobin 9.9 GM/DL (14.0-18.0); Immature Granulocytes % 0.7 %; Immature Granulocytes Absolute 0.04 #; Lymphocytes # 0.4 10*3/uL (1.4-4.0); Lymphocytes % 7.9 % (21.2-54.2); Mean Corpuscular HGB Conc 33.7 GM/DL (32-36); Mean Corpuscular Volume 110.1 FL (87-102); Mean Platelet Volume 10.7 FL (9.6-12.0); Monocytes % 4.9 % (1.7-12.7); Neutrophils % 85.8 % (38.7-73.9); Platelet Count 163 T/CUMM (130-400); Red Blood Count 2.67 MC/CUMM (3.8-5.5); Red Cell Distribution Width 15.1 % (9.3-17.3); White Blood Count 5.5 T/CUMM (4-12)
[2021-01-24 06:20] LABS: Albumin 2.2 G/DL (3.4-5.0); Bilirubin,Total 1.2 MG/DL (0.20-1.00); Calcium 8.7 MG/DL (8.5-10.1); Osmolality,Calculated 287.3 MOS/KG (273-304); Potassium 3.8 MMOL/L (3.5-5.1)
[2021-01-24 06:28] LABS: Band Neutrophils 2 % (0-10); Hypochromasia 1+; Lymphocytes 10 % (20-55); Microcytosis 1+; Platelet Estimate Adequate; Segmented Neutrophils 85 % (50-85); Total Cells Counted 100
[2021-01-24] MEDS: cefTRIAXone 1,000 MG in SODIUM CHLORIDE 0.9% 100 ML IV SCH (10:37)
[2021-01-24] MEDS: DUTASTERIDE 0.5 MG CAPSULE PO SCH (10:38)
[2021-01-24] MEDS: FUROSEMIDE 40 MG TABLET PO SCH (10:38)
[2021-01-24] MEDS: carvediloL 3.125 MG TABLET PO SCH ×2 (10:39→22:00)
[2021-01-24] MEDS: ASPIRIN EC 81 MG TABLET PO SCH (10:39)
[2021-01-24] MEDS: levETIRAcetam 500 MG TABLET PO SCH ×3 (10:39→22:00)
[2021-01-24] MEDS: DOCUSATE SODIUM 100 MG CAPSULE PO SCH ×2 (10:39→22:00)
[2021-01-24] MEDS: TAMSULOSIN 0.4 MG CAPSULE PO SCH (10:39)
[2021-01-24] MEDS: PANTOPRAZOLE 40 MG TABLET PO SCH (10:39)
[2021-01-24] MEDS: ATORVASTATIN 10 MG TABLET PO SCH (22:00)
[2021-01-25] MEDS: ALBUTEROL/IPRATROPIUM 3 ML NEB RESP TX SCH ×7 (04:00→23:24)
[2021-01-25 06:12] LABS: Basophils % 0.2 % (0.0-0.8); Eosinophils # 0.1 10*3/uL (0.0-0.87); Eosinophils % 1.1 % (0.00-10.9); Hematocrit 28.8 VOL% (42.0-52.0); Hemoglobin 9.8 GM/DL (14.0-18.0); Immature Granulocytes % 1.1 %; Immature Granulocytes Absolute 0.07 #; Lymphocytes # 0.5 10*3/uL (1.4-4.0); Lymphocytes % 8.3 % (21.2-54.2); Mean Corpuscular Volume 107.9 FL (87-102); Mean Platelet Volume 10.8 FL (9.6-12.0); Monocytes % 5.2 % (1.7-12.7); Neutrophils % 84.1 % (38.7-73.9); Platelet Count 180 T/CUMM (130-400); Red Blood Count 2.67 MC/CUMM (3.8-5.5); Red Cell Distribution Width 14.8 % (9.3-17.3); White Blood Count 6.2 T/CUMM (4-12)
[2021-01-25 06:34] LABS: Albumin 2.1 G/DL (3.4-5.0); Bilirubin,Total 0.6 MG/DL (0.20-1.00); Calcium 8.4 MG/DL (8.5-10.1); Osmolality,Calculated 289.1 MOS/KG (273-304); Potassium 3.7 MMOL/L (3.5-5.1); Total Protein 5.9 G/DL (6.4-8.2)
[2021-01-25 06:36] LABS: Band Neutrophils 2 % (0-10); Hypochromasia 1+; Lymphocytes 15 % (20-55); Microcytosis 1+; Ovalocytes Slight; Platelet Estimate Adequate; Segmented Neutrophils 76 % (50-85); Total Cells Counted 100
[2021-01-25] MEDS: TAMSULOSIN 0.4 MG CAPSULE PO SCH (10:09)
[2021-01-25] MEDS: levETIRAcetam 500 MG TABLET PO SCH ×3 (11:55→21:11)
[2021-01-25] MEDS: DUTASTERIDE 0.5 MG CAPSULE PO SCH (12:04)
[2021-01-25] MEDS: carvediloL 3.125 MG TABLET PO SCH ×2 (12:04→21:11)
[2021-01-25] MEDS: DOCUSATE SODIUM 100 MG CAPSULE PO SCH ×2 (12:04→21:05)
[2021-01-25] MEDS: ASPIRIN EC 81 MG TABLET PO SCH (12:04)
[2021-01-25] MEDS: FUROSEMIDE 40 MG TABLET PO SCH (12:05)
[2021-01-25] MEDS: PANTOPRAZOLE 40 MG TABLET PO SCH (12:05)
[2021-01-25] MEDS: cefTRIAXone 1,000 MG in SODIUM CHLORIDE 0.9% 100 ML IV SCH (12:05)
[2021-01-25 14:55] LABS: Basophils % 0.1 % (0.0-0.8); Eosinophils # 0.1 10*3/uL (0.0-0.87); Eosinophils % 1.2 % (0.00-10.9); Hematocrit 31.1 VOL% (42.0-52.0); Hemoglobin 10.6 GM/DL (14.0-18.0); Immature Granulocytes % 0.6 %; Immature Granulocytes Absolute 0.04 #; Lymphocytes # 0.7 10*3/uL (1.4-4.0); Lymphocytes % 9.8 % (21.2-54.2); Mean Corpuscular HGB Conc 34.1 GM/DL (32-36); Mean Corpuscular Volume 107.6 FL (87-102); Mean Platelet Volume 10.5 FL (9.6-12.0); Monocytes % 5.2 % (1.7-12.7); Neutrophils % 83.1 % (38.7-73.9); Platelet Count 189 T/CUMM (130-400); Red Blood Count 2.89 MC/CUMM (3.8-5.5); White Blood Count 6.9 T/CUMM (4-12)
[2021-01-25] MEDS ORDERED: TUBERCULIN SKIN TEST 0.1 ML SYRINGE INTRADERM ONE (15:00)
[2021-01-25] MEDS: SODIUM CHLORIDE 0.9% 1,000 ML IV SCH (15:04)
[2021-01-25 15:17] LABS: Band Neutrophils 1 % (0-10); Burr Cells Slight; Hypochromasia 1+; Lymphocytes 14 % (20-55); Microcytosis 1+; Ovalocytes Slight; Platelet Estimate Adequate; Segmented Neutrophils 83 % (50-85); Total Cells Counted 100
[2021-01-25 15:20] LABS: Albumin 2.2 G/DL (3.4-5.0); Bilirubin,Total 0.6 MG/DL (0.20-1.00); Calcium 8.6 MG/DL (8.5-10.1); Osmolality,Calculated 287.3 MOS/KG (273-304); Potassium 3.9 MMOL/L (3.5-5.1); Total Protein 6.5 G/DL (6.4-8.2)
[2021-01-25] MEDS: ATORVASTATIN 10 MG TABLET PO SCH (21:11)
[2021-01-26] MEDS: ALBUTEROL/IPRATROPIUM 3 ML NEB RESP TX SCH ×5 (02:50→19:35)
[2021-01-26 05:39] LABS: Basophils % 0.2 % (0.0-0.8); Eosinophils # 0.1 10*3/uL (0.0-0.87); Eosinophils % 2.1 % (0.00-10.9); Hematocrit 25.6 VOL% (42.0-52.0); Hemoglobin 8.9 GM/DL (14.0-18.0); Immature Granulocytes % 0.6 %; Immature Granulocytes Absolute 0.03 #; Lymphocytes # 0.6 10*3/uL (1.4-4.0); Lymphocytes % 10.5 % (21.2-54.2); Mean Corpuscular HGB Conc 34.8 GM/DL (32-36); Mean Corpuscular Volume 107.6 FL (87-102); Mean Platelet Volume 10.6 FL (9.6-12.0); Monocytes % 6.1 % (1.7-12.7); Neutrophils % 80.5 % (38.7-73.9); Platelet Count 176 T/CUMM (130-400); Red Blood Count 2.38 MC/CUMM (3.8-5.5); Red Cell Distribution Width 14.9 % (9.3-17.3); White Blood Count 5.3 T/CUMM (4-12)
[2021-01-26 06:01] LABS: Albumin 1.9 G/DL (3.4-5.0); Bilirubin,Total 1.1 MG/DL (0.20-1.00); Calcium 8.1 MG/DL (8.5-10.1); Potassium 3.5 MMOL/L (3.5-5.1); Total Protein 5.3 G/DL (6.4-8.2)
[2021-01-26 06:11] LABS: Hypochromasia 1+; Lymphocytes 5 % (20-55); Microcytosis 1+; Ovalocytes Slight; Platelet Estimate Adequate; Segmented Neutrophils 89 % (50-85); Total Cells Counted 100
[2021-01-26] MEDS: cefTRIAXone 1,000 MG in SODIUM CHLORIDE 0.9% 100 ML IV SCH (08:55)
[2021-01-26] MEDS: DUTASTERIDE 0.5 MG CAPSULE PO SCH (08:58)
[2021-01-26] MEDS: ASPIRIN EC 81 MG TABLET PO SCH (08:58)
[2021-01-26] MEDS: TAMSULOSIN 0.4 MG CAPSULE PO SCH (08:58)
[2021-01-26] MEDS: PANTOPRAZOLE 40 MG TABLET PO SCH (08:58)
[2021-01-26] MEDS: levETIRAcetam 500 MG TABLET PO SCH ×3 (08:58→21:37)
[2021-01-26] MEDS: DOCUSATE SODIUM 100 MG CAPSULE PO SCH ×2 (08:58→21:37)
[2021-01-26] MEDS: FUROSEMIDE 40 MG TABLET PO SCH (08:59)
[2021-01-26] MEDS: carvediloL 3.125 MG TABLET PO SCH ×2 (08:59→21:37)
[2021-01-26] MEDS: SODIUM CHLORIDE 0.9% 1,000 ML IV SCH ×2 (14:52→17:27)
[2021-01-26] MEDS: ATORVASTATIN 10 MG TABLET PO SCH (21:37)
[2021-01-27] MEDS: ALBUTEROL/IPRATROPIUM 3 ML NEB RESP TX SCH ×4 (00:24→11:58)
[2021-01-27 05:57] LABS: Basophils % 0.2 % (0.0-0.8); Eosinophils # 0.2 10*3/uL (0.0-0.87); Eosinophils % 3.1 % (0.00-10.9); Hematocrit 28.1 VOL% (42.0-52.0); Hemoglobin 9.4 GM/DL (14.0-18.0); Immature Granulocytes % 1.2 %; Immature Granulocytes Absolute 0.06 #; Lymphocytes # 0.6 10*3/uL (1.4-4.0); Lymphocytes % 12.4 % (21.2-54.2); Mean Corpuscular HGB Conc 33.5 GM/DL (32-36); Mean Corpuscular Volume 111.1 FL (87-102); Mean Platelet Volume 10.8 FL (9.6-12.0); Monocytes % 5.5 % (1.7-12.7); Neutrophils % 77.6 % (38.7-73.9); Platelet Count 181 T/CUMM (130-400); Red Blood Count 2.53 MC/CUMM (3.8-5.5); White Blood Count 5.1 T/CUMM (4-12)
[2021-01-27 06:21] LABS: Eosinophils 4 % (0-10); Lymphocytes 11 % (20-55); Platelet Estimate Normal; Segmented Neutrophils 77 % (50-85); Total Cells Counted 100
[2021-01-27 06:33] LABS: Albumin 1.9 G/DL (3.4-5.0); Bilirubin,Total 0.7 MG/DL (0.20-1.00); Calcium 8.2 MG/DL (8.5-10.1); Potassium 3.4 MMOL/L (3.5-5.1); Total Protein 5.6 G/DL (6.4-8.2)
[2021-01-27] MEDS: SODIUM CHLORIDE 0.9% 1,000 ML IV SCH (08:19)
[2021-01-27] MEDS: DUTASTERIDE 0.5 MG CAPSULE PO SCH (08:20)
[2021-01-27] MEDS: cefTRIAXone 1,000 MG in SODIUM CHLORIDE 0.9% 100 ML IV SCH (08:20)
[2021-01-27] MEDS: PANTOPRAZOLE 40 MG TABLET PO SCH (08:20)
[2021-01-27] MEDS: ASPIRIN EC 81 MG TABLET PO SCH (08:20)
[2021-01-27] MEDS: FUROSEMIDE 40 MG TABLET PO SCH (08:20)
[2021-01-27] MEDS: levETIRAcetam 500 MG TABLET PO SCH (08:20)
[2021-01-27] MEDS: DOCUSATE SODIUM 100 MG CAPSULE PO SCH (08:21)
[2021-01-27] MEDS: TAMSULOSIN 0.4 MG CAPSULE PO SCH (08:21)
[2021-01-27] MEDS: carvediloL 3.125 MG TABLET PO SCH (08:21)
[2021-01-27 10:34] VITALS: BP 120/56
== END 2021-01-27 15:35 | DRG 199 ==
LOC: EDBD → EDUNIT# → N.ED 11:16 → N.EDINP 11:16 → N.5E 18:05
PROVIDERS: ADMIT Family Medicine; ATTEND Family Medicine

== ENCOUNTER 2021-02-28 04:08 | Observation (INO) ==
[2021-02-28 05:52] LABS: Bilirubin,Urine Negative (Negative); Blood, Urine Large mg/dL (Negative); Glucose,Urine (UA) Negative (Negative); Ketones,Urine Negative (Negative); Nitrite,Urine Positive (Negative); Protein,Urine 100 MG/DL; RBC,Urine 11808 /HPF (0-4); Urine Appearance CLOUDY (Clear); Urine Color Red (Yellow); Urine Urobilinogen < 2.0 EU/DL (0.2-1.0)
[2021-02-28 05:53] LABS: Basophils % 0.2 % (0.0-0.8); Eosinophils % 0.1 % (0.00-10.9); Hematocrit 34.7 VOL% (42.0-52.0); Hemoglobin 11.8 GM/DL (14.0-18.0); Immature Granulocytes % 0.4 %; Immature Granulocytes Absolute 0.04 #; Lymphocytes # 0.6 10*3/uL (1.4-4.0); Mean Corpuscular Volume 106.1 FL (87-102); Mean Platelet Volume 10.5 FL (9.6-12.0); Monocytes % 3.8 % (1.7-12.7); Neutrophils % 88.5 % (38.7-73.9); Platelet Count 194 T/CUMM (130-400); Red Blood Count 3.27 MC/CUMM (3.8-5.5); Red Cell Distribution Width 14.6 % (9.3-17.3)
[2021-02-28 06:03] LABS: INR 1.2; PT Patient Result 13.5 SECS (10.5-12.0)
[2021-02-28 06:17] LABS: Bilirubin,Total 0.8 MG/DL (0.20-1.00); Calcium 8.8 MG/DL (8.5-10.1); Potassium 3.2 MMOL/L (3.5-5.1); Total Protein 6.7 G/DL (6.4-8.2)
[2021-02-28] MEDS ORDERED: cefTRIAXone 1,000 MG in SODIUM CHLORIDE 0.9% 100 ML IV STA (08:34)
[2021-02-28] MEDS ORDERED: ONDANSETRON 4 MG/2 ML VIAL IV PRN (19:13)
[2021-02-28] MEDS ORDERED: DOCUSATE SODIUM 100 MG CAPSULE PO PRN (19:13)
[2021-02-28] MEDS ORDERED: ACETAMINOPHEN 325 MG TABLET PO PRN (19:13)
[2021-02-28] MEDS: DOCUSATE SODIUM 100 MG CAPSULE PO SCH (21:46)
[2021-02-28] MEDS: levETIRAcetam 500 MG TABLET PO SCH ×2 (21:46→22:05)
[2021-02-28] MEDS: ATORVASTATIN 10 MG TABLET PO SCH (21:46)
[2021-02-28] MEDS: carvediloL 3.125 MG TABLET PO SCH (21:46)
[2021-02-28] MEDS: FUROSEMIDE 40 MG TABLET PO SCH (21:46)
[2021-02-28] MEDS: SODIUM CHLORIDE 0.9% 1,000 ML IV SCH (22:02)
[2021-03-01] MEDS: SODIUM CHLORIDE 0.9% 1,000 ML IV SCH ×4 (04:39→15:48)
[2021-03-01 06:47] LABS: Basophils % 0.4 % (0.0-0.8); Eosinophils % 0.7 % (0.00-10.9); Hematocrit 26.1 VOL% (42.0-52.0); Hemoglobin 8.5 GM/DL (14.0-18.0); Immature Granulocytes % 0.4 %; Immature Granulocytes Absolute 0.02 #; Lymphocytes # 0.9 10*3/uL (1.4-4.0); Lymphocytes % 16.2 % (21.2-54.2); Mean Corpuscular HGB Conc 32.6 GM/DL (32-36); Mean Corpuscular Volume 107.4 FL (87-102); Mean Platelet Volume 10.3 FL (9.6-12.0); Monocytes % 7.6 % (1.7-12.7); Neutrophils % 74.7 % (38.7-73.9); Platelet Count 156 T/CUMM (130-400); Red Blood Count 2.43 MC/CUMM (3.8-5.5); Red Cell Distribution Width 14.6 % (9.3-17.3); White Blood Count 5.7 T/CUMM (4-12)
[2021-03-01 07:14] LABS: Albumin 2.2 G/DL (3.4-5.0); Bilirubin,Total 0.9 MG/DL (0.20-1.00); Calcium 8.2 MG/DL (8.5-10.1); Osmolality,Calculated 287.8 MOS/KG (273-304); Potassium 2.8 MMOL/L (3.5-5.1)
[2021-03-01] MEDS: DOCUSATE SODIUM 100 MG CAPSULE PO SCH ×2 (08:50→21:49)
[2021-03-01] MEDS: TAMSULOSIN 0.4 MG CAPSULE PO SCH (08:50)
[2021-03-01] MEDS: POTASSIUM CHLORIDE 20 MEQ TABLET PO SCH (08:50)
[2021-03-01] MEDS: lisinopriL 2.5 MG TABLET PO SCH (08:50)
[2021-03-01] MEDS: levETIRAcetam 500 MG TABLET PO SCH ×3 (08:50→21:48)
[2021-03-01] MEDS: PANTOPRAZOLE 40 MG TABLET PO SCH (08:50)
[2021-03-01] MEDS: FUROSEMIDE 40 MG TABLET PO SCH ×2 (08:50→21:48)
[2021-03-01] MEDS: DUTASTERIDE 0.5 MG CAPSULE PO SCH (08:50)
[2021-03-01] MEDS: cefTRIAXone 1,000 MG in SODIUM CHLORIDE 0.9% 100 ML IV SCH (08:50)
[2021-03-01] MEDS: AMIODARONE 200 MG TABLET PO SCH (08:50)
[2021-03-01] MEDS: carvediloL 3.125 MG TABLET PO SCH ×2 (08:50→21:48)
[2021-03-01] MEDS ORDERED: POTASSIUM BICARB EFFERVESCENT 20 MEQ TAB.EFF PO ONE (10:00)
[2021-03-01] MEDS ORDERED: LIDOCAINE 2% TOP JELLY 20 ML VIAL INTRAURETH ONE (12:01)
[2021-03-01] MEDS: ATORVASTATIN 10 MG TABLET PO SCH (21:49)
[2021-03-02] MEDS: SODIUM CHLORIDE 0.9% 1,000 ML IV SCH ×3 (00:29→18:43)
[2021-03-02 05:48] LABS: Basophils % 0.2 % (0.0-0.8); Eosinophils # 0.1 10*3/uL (0.0-0.87); Eosinophils % 1.3 % (0.00-10.9); Hematocrit 26.9 VOL% (42.0-52.0); Hemoglobin 8.6 GM/DL (14.0-18.0); Immature Granulocytes % 0.4 %; Immature Granulocytes Absolute 0.02 #; Lymphocytes # 0.9 10*3/uL (1.4-4.0); Lymphocytes % 18.6 % (21.2-54.2); Mean Corpuscular Volume 109.3 FL (87-102); Mean Platelet Volume 10.6 FL (9.6-12.0); Monocytes % 7.6 % (1.7-12.7); Neutrophils % 71.9 % (38.7-73.9); Platelet Count 165 T/CUMM (130-400); Red Blood Count 2.46 MC/CUMM (3.8-5.5); Red Cell Distribution Width 14.6 % (9.3-17.3); White Blood Count 4.7 T/CUMM (4-12)
[2021-03-02 06:17] LABS: Albumin 2.2 G/DL (3.4-5.0); Bilirubin,Total 0.8 MG/DL (0.20-1.00); Calcium 7.8 MG/DL (8.5-10.1); Osmolality,Calculated 288.7 MOS/KG (273-304); Potassium 3.1 MMOL/L (3.5-5.1); Total Protein 5.3 G/DL (6.4-8.2)
[2021-03-02] MEDS: carvediloL 3.125 MG TABLET PO SCH (09:57)
[2021-03-02] MEDS: POTASSIUM CHLORIDE 20 MEQ TABLET PO SCH (09:57)
[2021-03-02] MEDS: FUROSEMIDE 40 MG TABLET PO SCH (09:57)
[2021-03-02] MEDS: DUTASTERIDE 0.5 MG CAPSULE PO SCH (09:57)
[2021-03-02] MEDS: AMIODARONE 200 MG TABLET PO SCH (09:57)
[2021-03-02] MEDS: lisinopriL 2.5 MG TABLET PO SCH (09:57)
[2021-03-02] MEDS: TAMSULOSIN 0.4 MG CAPSULE PO SCH (09:57)
[2021-03-02] MEDS: DOCUSATE SODIUM 100 MG CAPSULE PO SCH (09:57)
[2021-03-02] MEDS: levETIRAcetam 500 MG TABLET PO SCH ×2 (09:58→18:43)
[2021-03-02] MEDS: cefTRIAXone 1,000 MG in SODIUM CHLORIDE 0.9% 100 ML IV SCH (10:00)
[2021-03-02] MEDS: PANTOPRAZOLE 40 MG TABLET PO SCH (10:08)
[2021-03-02 11:26] VITALS: BP 144/63
== END 2021-03-02 18:10 | disposition home health service (06) ==
LOC: N.EDINP 04:08 → N.ED 04:08 → N.EDINP 17:13 → N.3E 17:15
PROVIDERS: ADMIT Family Medicine; ATTEND Family Medicine

== ENCOUNTER 2021-10-18 01:17 | Inpatient (IN) ==
[2021-10-18] MEDS ORDERED: SODIUM CHLORIDE 0.9% 1,000 ML IV STA (01:49)
[2021-10-18 02:46] LABS: Bilirubin,Urine Negative (Negative); Blood, Urine Moderate mg/dL (Negative); Glucose,Urine (UA) Negative (Negative); Ketones,Urine Negative (Negative); Mucus,Urine Occasional /LPF (Occasional); Nitrite,Urine Negative (Negative); Protein,Urine 100 mg/dL (Negative); RBC,Urine 17 /HPF (0-4); Urine Appearance SLM CLOUDY (Clear); Urine Color Yellow (Yellow); Urine Specific Gravity 1.025 (1.001-1.035); Urine pH 5.5 (4.5-8.0)
[2021-10-18 02:50] LABS: Basophils % 0.2 % (0.0-0.8); Eosinophils % 0.3 % (0.00-10.9); Hematocrit 28.4 VOL% (42.0-52.0); Hemoglobin 9.1 GM/DL (14.0-18.0); Immature Granulocytes % 0.3 %; Immature Granulocytes Absolute 0.02 #; Lymphocytes # 0.5 10*3/uL (1.4-4.0); Lymphocytes % 8.7 % (21.2-54.2); Mean Corpuscular Volume 110.5 FL (87-102); Mean Platelet Volume 10.5 FL (9.6-12.0); Monocytes # 0.3 10*3/uL (0.11-0.8); Monocytes % 4.3 % (1.7-12.7); Neutrophils % 86.2 % (38.7-73.9); Platelet Count 120 T/CUMM (130-400); Red Blood Count 2.57 MC/CUMM (3.8-5.5); Red Cell Distribution Width 17.6 % (9.3-17.3); White Blood Count 5.8 T/CUMM (4-12)
[2021-10-18 02:52] LABS: Albumin 2.5 G/DL (3.4-5.0); Bilirubin,Total 0.4 MG/DL (0.20-1.00); Calcium 7.6 MG/DL (8.5-10.1); Osmolality,Calculated 290.8 MOS/KG (273-304); Potassium 3.7 MMOL/L (3.5-5.1); Total Protein 5.5 G/DL (6.4-8.2)
[2021-10-18] MEDS ORDERED: cefTRIAXone 1,000 MG in SODIUM CHLORIDE 0.9% 100 ML IV STA (02:57)
[2021-10-18] MEDS ORDERED: PIPERACILLIN/TAZOBACTAM 3,375 MG in SODIUM CHLORIDE 0.9% 100 ML IV STA (02:58)
[2021-10-18 03:23] LABS: Lymphocytes 12 % (20-55); Platelet Estimate Adequate; Total Cells Counted 100
[2021-10-18 03:24] LABS: Acanthocytes 1+; Poikilocytosis 1+
[2021-10-18] MEDS ORDERED: ONDANSETRON 4 MG/2 ML VIAL IV PRN (04:27)
[2021-10-18] MEDS ORDERED: ACETAMINOPHEN 325 MG TABLET PO PRN (04:27)
[2021-10-18 05:13] LABS: Arterial Base Excess iSTAT -2 MMOL/L (-2.5-2.5); Arterial Bicarbonate iSTAT 24.3 MMOL/L (20-26); Arterial O2 Saturation iSTAT 97 % (95-100); Arterial PCO2 iSTAT 49 MM HG (35-48); Arterial PO2 iSTAT 96 MM HG (80-95); Arterial Total CO2 iSTAT 26 MMO/L (23-27); Arterial pH iSTAT 7.307 (7.35-7.45)
[2021-10-18] MEDS ORDERED: AMIODARONE 200 MG TABLET PO SCH (09:00)
[2021-10-18] MEDS: PANTOPRAZOLE 40 MG VIAL IV SCH (12:10)
[2021-10-18] MEDS: lisinopriL 2.5 MG TABLET PO SCH (12:20)
[2021-10-18] MEDS: ASPIRIN 325 MG TABLET PO SCH (12:20)
[2021-10-18] MEDS ORDERED: MAGNESIUM SULF RIDER 2 GM/50 ML PREMIX IV PRN (13:58)
[2021-10-18] MEDS ORDERED: hydrALAZINE 20 MG/1 ML VIAL IV PRN (13:58)
[2021-10-18] MEDS ORDERED: POTASSIUM CHLORIDE RIDER 10 MEQ/100 ML PREMIX IV PRN (13:58)
[2021-10-18] MEDS ORDERED: POTASSIUM CHLORIDE 20 MEQ TABLET PO PRN (13:58)
[2021-10-18] MEDS ORDERED: MAGNESIUM SULF RIDER 4 GM/100 ML PREMIX IV PRN (13:58)
[2021-10-18] MEDS ORDERED: LORazepam 2 MG/1 ML VIAL IM PRN (14:07)
[2021-10-18] MEDS: ALBUTEROL/IPRATROPIUM 3 ML NEB RESP TX SCH ×3 (14:50→23:00)
[2021-10-18] MEDS: methylPREDNISolone SOD SUC 40 MG/1 ML VIAL IV SCH (15:20)
[2021-10-18] MEDS: PIPERACILLIN/TAZOBACTAM 3,375 MG in SODIUM CHLORIDE 0.9% 100 ML IV SCH ×2 (15:29→22:33)
[2021-10-18] MEDS: levETIRAcetam 500 MG TABLET PO SCH ×2 (15:30→22:32)
[2021-10-18] MEDS: FUROSEMIDE 40 MG/4 ML VIAL IV SCH (17:42)
[2021-10-18] MEDS: carvediloL 3.125 MG TABLET PO SCH (17:42)
[2021-10-18] MEDS: ATORVASTATIN 10 MG TABLET PO SCH (22:33)
[2021-10-18] MEDS: AMIODARONE 200 MG TABLET PO SCH (22:33)
[2021-10-19] MEDS: methylPREDNISolone SOD SUC 40 MG/1 ML VIAL IV SCH ×2 (02:05→15:25)
[2021-10-19] MEDS: ALBUTEROL/IPRATROPIUM 3 ML NEB RESP TX SCH ×6 (03:30→23:50)
[2021-10-19] MEDS: PIPERACILLIN/TAZOBACTAM 3,375 MG in SODIUM CHLORIDE 0.9% 100 ML IV SCH ×2 (05:50→12:10)
[2021-10-19 06:11] LABS: Basophils % 0.1 % (0.0-0.8); Hematocrit 34.2 VOL% (42.0-52.0); Hemoglobin 11.6 GM/DL (14.0-18.0); Immature Granulocytes % 0.6 %; Immature Granulocytes Absolute 0.05 #; Lymphocytes # 0.6 10*3/uL (1.4-4.0); Lymphocytes % 7.4 % (21.2-54.2); Mean Corpuscular HGB Conc 33.9 GM/DL (32-36); Mean Corpuscular Volume 107.2 FL (87-102); Mean Platelet Volume 11.8 FL (9.6-12.0); Monocytes # 0.2 10*3/uL (0.11-0.8); Monocytes % 3.1 % (1.7-12.7); Neutrophils % 88.8 % (38.7-73.9); Platelet Count 162 T/CUMM (130-400); Red Blood Count 3.19 MC/CUMM (3.8-5.5); Red Cell Distribution Width 17.2 % (9.3-17.3); White Blood Count 7.9 T/CUMM (4-12)
[2021-10-19 06:18] LABS: Albumin 2.4 G/DL (3.4-5.0); Bilirubin,Total 0.8 MG/DL (0.20-1.00); Calcium 8.5 MG/DL (8.5-10.1); Osmolality,Calculated 292.7 MOS/KG (273-304); Potassium 3.6 MMOL/L (3.5-5.1); Total Protein 5.9 G/DL (6.4-8.2)
[2021-10-19 06:26] LABS: Band Neutrophils 3 % (0-10); Lymphocytes 13 % (20-55); Ovalocytes Slight; Platelet Estimate Adequate; Total Cells Counted 100
[2021-10-19] MEDS: carvediloL 3.125 MG TABLET PO SCH ×2 (09:34→16:17)
[2021-10-19] MEDS: ASPIRIN 325 MG TABLET PO SCH (09:34)
[2021-10-19] MEDS: TAMSULOSIN 0.4 MG CAPSULE PO SCH (09:35)
[2021-10-19] MEDS: POTASSIUM CHLORIDE 20 MEQ TABLET PO SCH (09:35)
[2021-10-19] MEDS: AMIODARONE 200 MG TABLET PO SCH ×2 (09:35→20:49)
[2021-10-19] MEDS: DUTASTERIDE 0.5 MG CAPSULE PO SCH (09:35)
[2021-10-19] MEDS: levETIRAcetam 500 MG TABLET PO SCH ×3 (09:35→20:49)
[2021-10-19] MEDS: lisinopriL 2.5 MG TABLET PO SCH (09:35)
[2021-10-19] MEDS: FUROSEMIDE 40 MG/4 ML VIAL IV SCH ×2 (09:36→15:31)
[2021-10-19] MEDS: PANTOPRAZOLE 40 MG VIAL IV SCH (09:47)
[2021-10-19] MEDS: LINEZOLID INJ 600 MG/300 ML PREMIX IV SCH ×2 (09:51→23:28)
[2021-10-19] MEDS: ATORVASTATIN 10 MG TABLET PO SCH (20:49)
[2021-10-20] MEDS: PIPERACILLIN/TAZOBACTAM 3,375 MG in SODIUM CHLORIDE 0.9% 100 ML IV SCH ×3 (01:30→17:24)
[2021-10-20] MEDS: methylPREDNISolone SOD SUC 40 MG/1 ML VIAL IV SCH ×2 (01:38→15:36)
[2021-10-20] MEDS: ALBUTEROL/IPRATROPIUM 3 ML NEB RESP TX SCH ×6 (02:57→19:53)
[2021-10-20 05:40] LABS: Basophils % 0.1 % (0.0-0.8); Hematocrit 36.4 VOL% (42.0-52.0); Hemoglobin 12.4 GM/DL (14.0-18.0); Immature Granulocytes % 1.2 %; Immature Granulocytes Absolute 0.12 #; Lymphocytes # 0.5 10*3/uL (1.4-4.0); Lymphocytes % 5.3 % (21.2-54.2); Mean Corpuscular HGB Conc 34.1 GM/DL (32-36); Mean Corpuscular Volume 105.2 FL (87-102); Mean Platelet Volume 11.1 FL (9.6-12.0); Monocytes # 0.2 10*3/uL (0.11-0.8); Neutrophils % 91.4 % (38.7-73.9); Platelet Count 185 T/CUMM (130-400); Red Blood Count 3.46 MC/CUMM (3.8-5.5); Red Cell Distribution Width 17.3 % (9.3-17.3); White Blood Count 10.1 T/CUMM (4-12)
[2021-10-20 05:57] LABS: Albumin 2.3 G/DL (3.4-5.0); Calcium 8.5 MG/DL (8.5-10.1); Potassium 3.8 MMOL/L (3.5-5.1)
[2021-10-20 06:03] LABS: Acanthocytes Few; Band Neutrophils 2 % (0-10); Lymphocytes 3 % (20-55); Macrocytosis 1+; Total Cells Counted 100
[2021-10-20 06:04] LABS: Platelet Estimate Adequate; Polychromasia Slight
[2021-10-20] MEDS: DUTASTERIDE 0.5 MG CAPSULE PO SCH (09:09)
[2021-10-20] MEDS: lisinopriL 2.5 MG TABLET PO SCH (09:09)
[2021-10-20] MEDS: carvediloL 3.125 MG TABLET PO SCH ×2 (09:09→17:24)
[2021-10-20] MEDS: TAMSULOSIN 0.4 MG CAPSULE PO SCH (09:09)
[2021-10-20] MEDS: levETIRAcetam 500 MG TABLET PO SCH ×3 (09:09→21:36)
[2021-10-20] MEDS: AMIODARONE 200 MG TABLET PO SCH ×2 (09:09→21:37)
[2021-10-20] MEDS: ASPIRIN 325 MG TABLET PO SCH (09:09)
[2021-10-20] MEDS: POTASSIUM CHLORIDE 20 MEQ TABLET PO SCH (09:09)
[2021-10-20] MEDS: PANTOPRAZOLE 40 MG VIAL IV SCH (09:10)
[2021-10-20] MEDS: FUROSEMIDE 40 MG/4 ML VIAL IV SCH ×2 (09:10→15:36)
[2021-10-20] MEDS: LINEZOLID INJ 600 MG/300 ML PREMIX IV SCH ×2 (09:10→21:40)
[2021-10-20] MEDS: ATORVASTATIN 10 MG TABLET PO SCH (21:37)
[2021-10-21] MEDS: ALBUTEROL/IPRATROPIUM 3 ML NEB RESP TX SCH ×7 (01:35→22:50)
[2021-10-21] MEDS: methylPREDNISolone SOD SUC 40 MG/1 ML VIAL IV SCH ×2 (02:25→15:15)
[2021-10-21] MEDS: PIPERACILLIN/TAZOBACTAM 3,375 MG in SODIUM CHLORIDE 0.9% 100 ML IV SCH ×3 (02:25→17:12)
[2021-10-21 04:24] LABS: Basophils % 0.1 % (0.0-0.8); Hematocrit 34.8 VOL% (42.0-52.0); Immature Granulocytes % 1.7 %; Immature Granulocytes Absolute 0.18 #; Lymphocytes # 0.5 10*3/uL (1.4-4.0); Lymphocytes % 4.7 % (21.2-54.2); Mean Corpuscular HGB Conc 34.5 GM/DL (32-36); Mean Corpuscular Volume 105.5 FL (87-102); Mean Platelet Volume 11.3 FL (9.6-12.0); Monocytes # 0.3 10*3/uL (0.11-0.8); Neutrophils % 90.5 % (38.7-73.9); Platelet Count 181 T/CUMM (130-400); Red Cell Distribution Width 17.4 % (9.3-17.3); White Blood Count 10.4 T/CUMM (4-12)
[2021-10-21 04:43] LABS: Albumin 2.2 G/DL (3.4-5.0); Bilirubin,Total 0.9 MG/DL (0.20-1.00); Calcium 8.2 MG/DL (8.5-10.1); Osmolality,Calculated 294.8 MOS/KG (273-304); Potassium 3.5 MMOL/L (3.5-5.1); Total Protein 5.7 G/DL (6.4-8.2)
[2021-10-21 04:47] LABS: Acanthocytes Few; Lymphocytes 7 % (20-55); Ovalocytes Slight; Platelet Estimate Adequate; Total Cells Counted 100
[2021-10-21] MEDS ORDERED: LINEZOLID 600 MG TABLET PO SCH (09:00)
[2021-10-21] MEDS: PANTOPRAZOLE 40 MG VIAL IV SCH (09:38)
[2021-10-21] MEDS: FUROSEMIDE 40 MG/4 ML VIAL IV SCH ×2 (09:38→15:15)
[2021-10-21] MEDS: LINEZOLID INJ 600 MG/300 ML PREMIX IV SCH ×2 (09:39→22:08)
[2021-10-21] MEDS: levETIRAcetam 500 MG TABLET PO SCH ×3 (09:39→20:47)
[2021-10-21] MEDS: AMIODARONE 200 MG TABLET PO SCH ×2 (09:39→20:47)
[2021-10-21] MEDS: lisinopriL 2.5 MG TABLET PO SCH (09:39)
[2021-10-21] MEDS: TAMSULOSIN 0.4 MG CAPSULE PO SCH (09:40)
[2021-10-21] MEDS: carvediloL 3.125 MG TABLET PO SCH ×2 (09:40→16:28)
[2021-10-21] MEDS: ASPIRIN 325 MG TABLET PO SCH (09:40)
[2021-10-21] MEDS: POTASSIUM CHLORIDE 20 MEQ TABLET PO SCH (09:40)
[2021-10-21] MEDS: DUTASTERIDE 0.5 MG CAPSULE PO SCH (09:40)
[2021-10-21] MEDS: SULFAMETHOX/TRIMETHOPRIM 800-160 MG TABLET PO SCH ×2 (10:50→20:47)
[2021-10-21] MEDS: ATORVASTATIN 10 MG TABLET PO SCH (20:47)
[2021-10-22] MEDS: methylPREDNISolone SOD SUC 40 MG/1 ML VIAL IV SCH ×2 (02:11→14:25)
[2021-10-22] MEDS: PIPERACILLIN/TAZOBACTAM 3,375 MG in SODIUM CHLORIDE 0.9% 100 ML IV SCH ×2 (02:11→12:14)
[2021-10-22] MEDS: ALBUTEROL/IPRATROPIUM 3 ML NEB RESP TX SCH ×6 (02:57→23:42)
[2021-10-22 05:19] LABS: Basophils % 0.1 % (0.0-0.8); Hemoglobin 11.9 GM/DL (14.0-18.0); Immature Granulocytes % 1.6 %; Immature Granulocytes Absolute 0.13 #; Lymphocytes # 0.3 10*3/uL (1.4-4.0); Lymphocytes % 3.8 % (21.2-54.2); Mean Corpuscular Volume 106.1 FL (87-102); Mean Platelet Volume 10.7 FL (9.6-12.0); Monocytes # 0.2 10*3/uL (0.11-0.8); Monocytes % 2.3 % (1.7-12.7); Neutrophils % 92.2 % (38.7-73.9); Platelet Count 168 T/CUMM (130-400); White Blood Count 8.2 T/CUMM (4-12)
[2021-10-22 05:37] LABS: Albumin 2.2 G/DL (3.4-5.0); Bilirubin,Total 0.8 MG/DL (0.20-1.00); Calcium 8.5 MG/DL (8.5-10.1); Potassium 3.7 MMOL/L (3.5-5.1); Total Protein 5.5 G/DL (6.4-8.2)
[2021-10-22 05:40] LABS: Lymphocytes 9 % (20-55); Platelet Estimate Normal; Poikilocytosis Slight; Total Cells Counted 100
[2021-10-22 05:41] LABS: Acanthocytes 1+; Macrocytosis 1+
[2021-10-22] MEDS: TAMSULOSIN 0.4 MG CAPSULE PO SCH (09:38)
[2021-10-22] MEDS: AMIODARONE 200 MG TABLET PO SCH ×2 (09:38→21:59)
[2021-10-22] MEDS: levETIRAcetam 500 MG TABLET PO SCH ×3 (09:38→21:59)
[2021-10-22] MEDS: POTASSIUM CHLORIDE 20 MEQ TABLET PO SCH (09:38)
[2021-10-22] MEDS: DUTASTERIDE 0.5 MG CAPSULE PO SCH (09:38)
[2021-10-22] MEDS: SULFAMETHOX/TRIMETHOPRIM 800-160 MG TABLET PO SCH ×2 (09:38→21:59)
[2021-10-22] MEDS: lisinopriL 2.5 MG TABLET PO SCH (09:39)
[2021-10-22] MEDS: ASPIRIN 325 MG TABLET PO SCH (09:39)
[2021-10-22] MEDS: carvediloL 3.125 MG TABLET PO SCH ×2 (09:47→16:59)
[2021-10-22] MEDS: LINEZOLID INJ 600 MG/300 ML PREMIX IV SCH ×2 (09:51→22:00)
[2021-10-22] MEDS: FUROSEMIDE 40 MG/4 ML VIAL IV SCH ×2 (09:54→17:00)
[2021-10-22] MEDS: PANTOPRAZOLE 40 MG VIAL IV SCH (09:54)
[2021-10-22] MEDS: ATORVASTATIN 10 MG TABLET PO SCH (21:59)
[2021-10-23] MEDS: methylPREDNISolone SOD SUC 40 MG/1 ML VIAL IV SCH ×2 (02:16→15:10)
[2021-10-23] MEDS: ALBUTEROL/IPRATROPIUM 3 ML NEB RESP TX SCH ×3 (03:45→10:25)
[2021-10-23 06:48] LABS: Albumin 2.3 G/DL (3.4-5.0); Bilirubin,Total 0.7 MG/DL (0.20-1.00); Calcium 8.4 MG/DL (8.5-10.1); Osmolality,Calculated 288.4 MOS/KG (273-304); Potassium 3.5 MMOL/L (3.5-5.1); Total Protein 5.5 G/DL (6.4-8.2)
[2021-10-23 06:50] LABS: Basophils % 0.1 % (0.0-0.8); Hemoglobin 11.4 GM/DL (14.0-18.0); Immature Granulocytes % 0.5 %; Immature Granulocytes Absolute 0.04 #; Lymphocytes # 0.3 10*3/uL (1.4-4.0); Lymphocytes % 3.5 % (21.2-54.2); Mean Corpuscular HGB Conc 33.5 GM/DL (32-36); Mean Corpuscular Volume 106.6 FL (87-102); Mean Platelet Volume 11.7 FL (9.6-12.0); Monocytes # 0.3 10*3/uL (0.11-0.8); Monocytes % 3.4 % (1.7-12.7); Neutrophils % 92.5 % (38.7-73.9); Platelet Count 154 T/CUMM (130-400); Red Blood Count 3.19 MC/CUMM (3.8-5.5); Red Cell Distribution Width 16.9 % (9.3-17.3); White Blood Count 7.7 T/CUMM (4-12)
[2021-10-23] MEDS: FUROSEMIDE 40 MG/4 ML VIAL IV SCH ×2 (09:53→17:43)
[2021-10-23] MEDS: TAMSULOSIN 0.4 MG CAPSULE PO SCH (09:53)
[2021-10-23] MEDS: DUTASTERIDE 0.5 MG CAPSULE PO SCH (09:53)
[2021-10-23] MEDS: PANTOPRAZOLE 40 MG VIAL IV SCH (09:53)
[2021-10-23] MEDS: SULFAMETHOX/TRIMETHOPRIM 800-160 MG TABLET PO SCH ×2 (09:54→21:43)
[2021-10-23] MEDS: ASPIRIN 325 MG TABLET PO SCH (09:54)
[2021-10-23] MEDS: lisinopriL 2.5 MG TABLET PO SCH (09:54)
[2021-10-23] MEDS: levETIRAcetam 500 MG TABLET PO SCH ×3 (09:54→21:43)
[2021-10-23] MEDS: AMIODARONE 200 MG TABLET PO SCH ×2 (09:54→21:43)
[2021-10-23] MEDS: POTASSIUM CHLORIDE 20 MEQ TABLET PO SCH (09:55)
[2021-10-23] MEDS: LINEZOLID INJ 600 MG/300 ML PREMIX IV SCH ×2 (09:55→21:44)
[2021-10-23] MEDS: carvediloL 3.125 MG TABLET PO SCH ×2 (09:56→17:44)
[2021-10-23 12:42] LABS: Lymphocytes 3 % (20-55); Platelet Estimate Adequate; Schistocytes Few; Total Cells Counted 100
[2021-10-23 12:43] LABS: Acanthocytes 1+
[2021-10-23] MEDS: ATORVASTATIN 10 MG TABLET PO SCH (21:44)
[2021-10-24 04:50] LABS: Basophils % 0.1 % (0.0-0.8); Eosinophils # 0.1 10*3/uL (0.0-0.87); Eosinophils % 0.8 % (0.00-10.9); Hematocrit 35.2 VOL% (42.0-52.0); Hemoglobin 12.2 GM/DL (14.0-18.0); Immature Granulocytes % 0.7 %; Immature Granulocytes Absolute 0.05 #; Lymphocytes # 0.3 10*3/uL (1.4-4.0); Lymphocytes % 3.6 % (21.2-54.2); Mean Corpuscular HGB Conc 34.7 GM/DL (32-36); Mean Corpuscular Volume 102.9 FL (87-102); Mean Platelet Volume 11.7 FL (9.6-12.0); Monocytes # 0.2 10*3/uL (0.11-0.8); Monocytes % 2.8 % (1.7-12.7); Platelet Count 121 T/CUMM (130-400); Red Blood Count 3.42 MC/CUMM (3.8-5.5); Red Cell Distribution Width 16.4 % (9.3-17.3); White Blood Count 7.4 T/CUMM (4-12)
[2021-10-24 05:03] LABS: Anisocytosis 1+; Lymphocytes 3 % (20-55); Macrocytosis 1+; Ovalocytes Slight; Total Cells Counted 100
[2021-10-24 05:04] LABS: Acanthocytes Few; Platelet Estimate Adequate
[2021-10-24 05:22] LABS: Albumin 2.4 G/DL (3.4-5.0); Bilirubin,Total 0.8 MG/DL (0.20-1.00); Calcium 7.9 MG/DL (8.5-10.1); Osmolality,Calculated 281.5 MOS/KG (273-304); Potassium 3.5 MMOL/L (3.5-5.1); Total Protein 5.6 G/DL (6.4-8.2)
[2021-10-24] MEDS ORDERED: methylPREDNISolone SOD SUC 40 MG/1 ML VIAL IV SCH (09:00)
[2021-10-24] MEDS: ASPIRIN 325 MG TABLET PO SCH (09:38)
[2021-10-24] MEDS: lisinopriL 2.5 MG TABLET PO SCH (09:38)
[2021-10-24] MEDS: levETIRAcetam 500 MG TABLET PO SCH ×2 (09:39→15:49)
[2021-10-24] MEDS: SULFAMETHOX/TRIMETHOPRIM 800-160 MG TABLET PO SCH (09:39)
[2021-10-24] MEDS: carvediloL 3.125 MG TABLET PO SCH ×2 (09:39→18:12)
[2021-10-24] MEDS: DUTASTERIDE 0.5 MG CAPSULE PO SCH (09:39)
[2021-10-24] MEDS: POTASSIUM CHLORIDE 20 MEQ TABLET PO SCH (09:39)
[2021-10-24] MEDS: AMIODARONE 200 MG TABLET PO SCH (09:39)
[2021-10-24] MEDS: TAMSULOSIN 0.4 MG CAPSULE PO SCH (09:39)
[2021-10-24] MEDS: PANTOPRAZOLE 40 MG VIAL IV SCH (09:39)
[2021-10-24] MEDS: FUROSEMIDE 40 MG/4 ML VIAL IV SCH ×2 (09:39→15:49)
[2021-10-24] MEDS: LINEZOLID INJ 600 MG/300 ML PREMIX IV SCH (09:40)
[2021-10-24 16:52] VITALS: BP 101/60
== END 2021-10-24 18:45 | DRG 100 ==
LOC: N.ED 01:17 → N.EDINP 04:26 → N.TELEN 16:56
PROVIDERS: ADMIT Family Medicine; ATTEND Family Medicine

== ENCOUNTER 2021-11-17 12:21 | Inpatient (IN) ==
[2021-11-17] MEDS ORDERED: SODIUM CHLORIDE 0.9% 1,000 ML IV STA (13:47)
[2021-11-17 14:04] LABS: Basophils % 0.4 % (0.0-0.8); Eosinophils % 0.4 % (0.00-10.9); Hemoglobin 9.2 GM/DL (14.0-18.0); Immature Granulocytes % 1.4 %; Immature Granulocytes Absolute 0.07 #; Lymphocytes # 0.8 10*3/uL (1.4-4.0); Lymphocytes % 14.9 % (21.2-54.2); Mean Corpuscular HGB Conc 32.9 GM/DL (32-36); Mean Corpuscular Volume 110.2 FL (87-102); Monocytes # 0.4 10*3/uL (0.11-0.8); Monocytes % 7.6 % (1.7-12.7); Neutrophils % 75.3 % (38.7-73.9); Platelet Count 291 T/CUMM (130-400); Red Blood Count 2.54 MC/CUMM (3.8-5.5); Red Cell Distribution Width 16.8 % (9.3-17.3)
[2021-11-17] MEDS ORDERED: SODIUM CHLORIDE 0.9% 500 ML IV STA (14:06)
[2021-11-17 14:14] LABS: INR 1.2; PT Patient Result 12.9 SECS (10.5-12.0)
[2021-11-17 14:22] LABS: Albumin 2.5 G/DL (3.4-5.0); Bilirubin,Total 0.6 MG/DL (0.20-1.00); Calcium 8.5 MG/DL (8.5-10.1); Osmolality,Calculated 291.7 MOS/KG (273-304); Potassium 3.4 MMOL/L (3.5-5.1); Total Protein 5.6 G/DL (6.4-8.2)
[2021-11-17 15:22] LABS: Bilirubin,Urine Negative (Negative); Blood, Urine Large mg/dL (Negative); Glucose,Urine (UA) Negative (Negative); Ketones,Urine Negative (Negative); Nitrite,Urine Negative (Negative); Protein,Urine 30 mg/dL (Negative); Urine Appearance Slightly Cloudy (Clear); Urine Color Yellow (Yellow); Urine Urobilinogen 0.2 eU/dL (<2.0); Urine pH 5.5 (4.5-8.0)
[2021-11-17 15:27] LABS: Bacteria,Urine Few /HPF (Few); Mucus,Urine Occasional /LPF (Occasional); RBC,Urine 23 /HPF (0-4)
[2021-11-17 15:30] LABS: Lactic Acid 1.4 MMOL/L (0.4-2.0)
[2021-11-17] MEDS ORDERED: LEVOFLOXACIN INJ 500 MG/100 ML PREMIX IV ONE (15:47)
[2021-11-17] MEDS ORDERED: ONDANSETRON 4 MG/2 ML VIAL IV PRN (15:49)
[2021-11-17] MEDS ORDERED: ACETAMINOPHEN 325 MG TABLET PO PRN (15:49)
[2021-11-17] MEDS: SODIUM CHLORIDE 0.9% 1,000 ML IV SCH (16:55)
[2021-11-17] MEDS: AMIODARONE 200 MG TABLET PO SCH (21:00)
[2021-11-17] MEDS ORDERED: PNEUMOCOCCAL VACCINE (13 VALENT) 0.5 ML SYRINGE IM ONE (21:00)
[2021-11-17] MEDS: ATORVASTATIN 10 MG TABLET PO SCH (21:00)
[2021-11-17] MEDS: POTASSIUM CHLORIDE 20 MEQ TABLET PO SCH (21:01)
[2021-11-17] MEDS: levETIRAcetam 500 MG TABLET PO SCH (21:01)
[2021-11-18] MEDS: SODIUM CHLORIDE 0.9% 1,000 ML IV SCH ×3 (01:36→20:45)
[2021-11-18 05:57] LABS: Basophils % 0.2 % (0.0-0.8); Eosinophils % 0.4 % (0.00-10.9); Hematocrit 24.1 VOL% (42.0-52.0); Hemoglobin 7.9 GM/DL (14.0-18.0); Immature Granulocytes % 1.2 %; Immature Granulocytes Absolute 0.06 #; Lymphocytes # 0.6 10*3/uL (1.4-4.0); Lymphocytes % 12.4 % (21.2-54.2); Mean Corpuscular HGB Conc 32.8 GM/DL (32-36); Mean Corpuscular Volume 111.1 FL (87-102); Mean Platelet Volume 10.6 FL (9.6-12.0); Monocytes # 0.4 10*3/uL (0.11-0.8); Monocytes % 7.2 % (1.7-12.7); Neutrophils % 78.6 % (38.7-73.9); Platelet Count 241 T/CUMM (130-400); Red Blood Count 2.17 MC/CUMM (3.8-5.5); Red Cell Distribution Width 16.7 % (9.3-17.3)
[2021-11-18 06:15] LABS: Albumin 1.9 G/DL (3.4-5.0); Bilirubin,Total 0.5 MG/DL (0.20-1.00); Calcium 7.9 MG/DL (8.5-10.1); Osmolality,Calculated 294.4 MOS/KG (273-304); Potassium 3.4 MMOL/L (3.5-5.1); Total Protein 5.1 G/DL (6.4-8.2)
[2021-11-18 06:20] LABS: Lymphocytes 9 % (20-55); Platelet Estimate Adequate; Total Cells Counted 100
[2021-11-18 06:21] LABS: Ovalocytes Slight
[2021-11-18] MEDS: AMIODARONE 200 MG TABLET PO SCH ×3 (09:10→20:47)
[2021-11-18] MEDS: PANTOPRAZOLE 40 MG VIAL IV SCH (09:10)
[2021-11-18] MEDS: POTASSIUM CHLORIDE 20 MEQ TABLET PO SCH ×3 (09:10→20:47)
[2021-11-18] MEDS: levETIRAcetam 500 MG TABLET PO SCH ×3 (09:10→20:47)
[2021-11-18] MEDS: ASPIRIN EC 81 MG TABLET PO SCH (09:10)
[2021-11-18] MEDS: TAMSULOSIN 0.4 MG CAPSULE PO SCH (09:10)
[2021-11-18] MEDS: SERTRALINE 25 MG TABLET PO SCH (09:10)
[2021-11-18 09:24] LABS: Hematocrit 28.4 VOL% (42.0-52.0); Hemoglobin 9.4 GM/DL (14.0-18.0)
[2021-11-18] MEDS: LEVOFLOXACIN INJ 250 MG/50 ML PREMIX IV SCH (17:01)
[2021-11-18] MEDS ORDERED: FUROSEMIDE 40 MG/4 ML VIAL IV ONE (18:25)
[2021-11-18] MEDS: ATORVASTATIN 10 MG TABLET PO SCH (20:47)
[2021-11-19] MEDS: SODIUM CHLORIDE 0.9% 1,000 ML IV SCH ×5 (01:19→23:36)
[2021-11-19 06:11] LABS: Basophils % 0.2 % (0.0-0.8); Eosinophils % 0.6 % (0.00-10.9); Hemoglobin 8.2 GM/DL (14.0-18.0); Immature Granulocytes % 1.7 %; Immature Granulocytes Absolute 0.08 #; Lymphocytes # 0.7 10*3/uL (1.4-4.0); Lymphocytes % 15.8 % (21.2-54.2); Mean Corpuscular HGB Conc 32.8 GM/DL (32-36); Mean Corpuscular Volume 111.1 FL (87-102); Mean Platelet Volume 10.4 FL (9.6-12.0); Monocytes # 0.3 10*3/uL (0.11-0.8); Monocytes % 6.9 % (1.7-12.7); Neutrophils % 74.8 % (38.7-73.9); Platelet Count 224 T/CUMM (130-400); Red Blood Count 2.25 MC/CUMM (3.8-5.5); Red Cell Distribution Width 16.7 % (9.3-17.3); White Blood Count 4.6 T/CUMM (4-12)
[2021-11-19 06:29] LABS: Albumin 2.3 G/DL (3.4-5.0); Bilirubin,Total 0.5 MG/DL (0.20-1.00); Calcium 7.6 MG/DL (8.5-10.1); Osmolality,Calculated 288.7 MOS/KG (273-304); Potassium 3.4 MMOL/L (3.5-5.1); Total Protein 5.1 G/DL (6.4-8.2)
[2021-11-19 06:55] LABS: Lymphocytes 14 % (20-55); Nucleated Red Blood Cells 1 (0-5); Total Cells Counted 100
[2021-11-19 06:56] LABS: Platelet Estimate Normal; Poikilocytosis 3+; Schistocytes Few
[2021-11-19] MEDS: POTASSIUM CHLORIDE 20 MEQ TABLET PO SCH ×3 (09:48→21:29)
[2021-11-19] MEDS: ASPIRIN EC 81 MG TABLET PO SCH (09:48)
[2021-11-19] MEDS: SERTRALINE 25 MG TABLET PO SCH (09:48)
[2021-11-19] MEDS: PANTOPRAZOLE 40 MG VIAL IV SCH (09:48)
[2021-11-19] MEDS: AMIODARONE 200 MG TABLET PO SCH ×2 (09:48→21:29)
[2021-11-19] MEDS: TAMSULOSIN 0.4 MG CAPSULE PO SCH (09:48)
[2021-11-19] MEDS: levETIRAcetam 500 MG TABLET PO SCH ×3 (09:48→21:29)
[2021-11-19] MEDS: LEVOFLOXACIN INJ 250 MG/50 ML PREMIX IV SCH (16:40)
[2021-11-19] MEDS: ATORVASTATIN 10 MG TABLET PO SCH (21:30)
[2021-11-20 05:44] LABS: Albumin 2.2 G/DL (3.4-5.0); Bilirubin,Total 0.5 MG/DL (0.20-1.00); Calcium 7.7 MG/DL (8.5-10.1); Osmolality,Calculated 284.8 MOS/KG (273-304); Potassium 3.6 MMOL/L (3.5-5.1)
[2021-11-20 05:49] LABS: Basophils % 0.2 % (0.0-0.8); Eosinophils % 0.9 % (0.00-10.9); Hematocrit 25.3 VOL% (42.0-52.0); Hemoglobin 8.2 GM/DL (14.0-18.0); Immature Granulocytes % 2.1 %; Immature Granulocytes Absolute 0.09 #; Lymphocytes # 0.7 10*3/uL (1.4-4.0); Lymphocytes % 15.1 % (21.2-54.2); Mean Corpuscular HGB Conc 32.4 GM/DL (32-36); Mean Corpuscular Volume 111.9 FL (87-102); Mean Platelet Volume 10.3 FL (9.6-12.0); Monocytes # 0.3 10*3/uL (0.11-0.8); Monocytes % 7.4 % (1.7-12.7); Neutrophils % 74.3 % (38.7-73.9); Platelet Count 220 T/CUMM (130-400); Red Blood Count 2.26 MC/CUMM (3.8-5.5); Red Cell Distribution Width 16.8 % (9.3-17.3); White Blood Count 4.3 T/CUMM (4-12)
[2021-11-20 07:57] LABS: Lymphocytes 10 % (20-55); Total Cells Counted 100
[2021-11-20 08:00] LABS: Burr Cells Few
[2021-11-20 08:01] LABS: Ovalocytes Few
[2021-11-20 08:02] LABS: Platelet Estimate Normal
[2021-11-20 08:03] LABS: Anisocytosis Slight
[2021-11-20] MEDS: POTASSIUM CHLORIDE 20 MEQ TABLET PO SCH ×3 (09:58→20:52)
[2021-11-20] MEDS: levETIRAcetam 500 MG TABLET PO SCH ×3 (09:58→20:52)
[2021-11-20] MEDS: TAMSULOSIN 0.4 MG CAPSULE PO SCH (09:58)
[2021-11-20] MEDS: ASPIRIN EC 81 MG TABLET PO SCH (09:58)
[2021-11-20] MEDS: AMIODARONE 200 MG TABLET PO SCH ×2 (09:58→20:51)
[2021-11-20] MEDS: SERTRALINE 25 MG TABLET PO SCH (09:58)
[2021-11-20] MEDS: SODIUM CHLORIDE 0.9% 1,000 ML IV SCH ×3 (09:59→20:50)
[2021-11-20] MEDS: PANTOPRAZOLE 40 MG VIAL IV SCH (09:59)
[2021-11-20] MEDS: LEVOFLOXACIN INJ 250 MG/50 ML PREMIX IV SCH (17:48)
[2021-11-20] MEDS: ATORVASTATIN 10 MG TABLET PO SCH (20:52)
[2021-11-21] MEDS: SODIUM CHLORIDE 0.9% 1,000 ML IV SCH ×4 (01:00→17:10)
[2021-11-21 05:05] LABS: Basophils % 0.2 % (0.0-0.8); Eosinophils # 0.1 10*3/uL (0.0-0.87); Eosinophils % 1.5 % (0.00-10.9); Hematocrit 24.7 VOL% (42.0-52.0); Hemoglobin 8.1 GM/DL (14.0-18.0); Immature Granulocytes Absolute 0.08 #; Lymphocytes # 0.7 10*3/uL (1.4-4.0); Lymphocytes % 16.6 % (21.2-54.2); Mean Corpuscular HGB Conc 32.8 GM/DL (32-36); Mean Corpuscular Volume 110.8 FL (87-102); Monocytes # 0.3 10*3/uL (0.11-0.8); Monocytes % 6.7 % (1.7-12.7); NRBC # 0.03 10*3/uL; Platelet Count 199 T/CUMM (130-400); Red Blood Count 2.23 MC/CUMM (3.8-5.5); Red Cell Distribution Width 17.1 % (9.3-17.3)
[2021-11-21 05:24] LABS: Albumin 1.9 G/DL (3.4-5.0); Bilirubin,Total 0.4 MG/DL (0.20-1.00); Calcium 7.4 MG/DL (8.5-10.1); Osmolality,Calculated 288.6 MOS/KG (273-304); Potassium 3.7 MMOL/L (3.5-5.1)
[2021-11-21] MEDS: POTASSIUM CHLORIDE 20 MEQ TABLET PO SCH ×3 (08:53→14:01)
[2021-11-21] MEDS: levETIRAcetam 500 MG TABLET PO SCH ×2 (08:53→13:57)
[2021-11-21] MEDS: TAMSULOSIN 0.4 MG CAPSULE PO SCH (08:53)
[2021-11-21] MEDS: PANTOPRAZOLE 40 MG VIAL IV SCH (08:53)
[2021-11-21] MEDS: AMIODARONE 200 MG TABLET PO SCH (08:54)
[2021-11-21] MEDS: SERTRALINE 25 MG TABLET PO SCH (08:54)
[2021-11-21] MEDS: ASPIRIN EC 81 MG TABLET PO SCH (08:54)
[2021-11-21 15:43] VITALS: BP 115/68
[2021-11-21] MEDS: LEVOFLOXACIN INJ 250 MG/50 ML PREMIX IV SCH (17:10)
== END 2021-11-21 18:55 | disposition home health service (06) | DRG 698 ==
LOC: N.ED 12:21 → N.EDINP 15:48 → N.3E 17:05
PROVIDERS: ADMIT Family Medicine; ATTEND Family Medicine